=== PATIENT | male | born 1955 | race Caucasian/White ===

== ENCOUNTER → 2020-03-08 14:50 | Outpatient (BNVA) | payer MEDICARE, SELFPAY | PROVIDERS: PCP Internal Medicine; Visit Provider Urology | DX: N40.1 Benign prostatic hyperplasia with lower urinary tract symptoms (principal); N13.8 Other obstructive and reflux uropathy; R35.1 Nocturia; N52.9 Male erectile dysfunction, unspecified; Z79.899 Other long term (current) drug therapy | CPT/HCPCS: 99213 ==

== ENCOUNTER 2020-04-25 16:00 | Outpatient (RCR) | payer MEDICARE, SELFPAY | END 2020-04-30 10:31 | disposition other institution (70) | LOC: HO.PT 16:00 | PROVIDERS: PCP Internal Medicine; Visit Provider Internal Medicine | DX: M25.511 Pain in right shoulder (principal); M25.572 Pain in left ankle and joints of left foot | CPT/HCPCS: 97110; 97161 ==

== ENCOUNTER → 2021-02-01 10:35 | Outpatient (BNVA) | payer MEDICARE, SELFPAY | PROVIDERS: Visit Provider Urology | DX: N40.1 Benign prostatic hyperplasia with lower urinary tract symptoms (principal); N13.8 Other obstructive and reflux uropathy; N52.9 Male erectile dysfunction, unspecified; R97.20 Elevated prostate specific antigen [PSA] | CPT/HCPCS: 51798; 99212 ==

== ENCOUNTER 2021-04-11 08:41 | Outpatient (REF) | payer MEDICARE, SELFPAY ==
--- NOTE | ~2021-04-11 | CT_ITS ---
EXAMINATION: CT CHEST WITHOUT CONTRAST CLINICAL INFORMATION: Centrilobular emphysema COMPARISON: Previous chest CT most recent June 2017 TECHNIQUE: Multidetector volumetric CT imaging of the chest was done. Axial MIP volume rendering provided. Sagittal and coronal reformatted images were obtained. This CT examination was performed using dose optimization techniques as appropriate, variously including the following: *Automated exposure control *Adjustment of mA and/or kV according to patient size (this includes techniques or standardized protocols for targeted exams where dose is matched to indication/reason for exam; i.e. extremities or head) *Use of iterative reconstruction technique DLP: 160 mGy-cm FINDINGS: LUNGS: There is evidence of paraseptal and centrilobular emphysema. There is cystic or bullous changes seen at the right lung apex. Just inferior to this is an increasing solid parenchymal density. This measures 1.1 x 1.7 cm in transverse and longitudinal dimension coronal reconstructed image 52 and 1 cm in AP dimension sagittal reconstructed image 82. This has slightly spiculated margins. This has adjacent reactive fatty pleural changes. This gradually increasing in size compared to older exams from 2017 and 2018. The lungs are otherwise clear. MEDIASTINUM: There are small mediastinal lymph nodes. There is mild coronary artery calcification. Mediastinum is otherwise normal. PLEURA: There is no pleural effusion. No pleural mass. AXILLA: No lymphadenopathy. UPPER ABDOMEN: Unremarkable. OSSEOUS STRUCTURES: There are degenerative changes of the spine. CT/CT chest wo con IMPRESSION: Paraseptal and centrilobular emphysema. There is a cystic change at the right lung apex that is stable. Immediately inferior to this is an increasing irregularly-shaped or spiculated density or nodule. Neoplastic process cannot be excluded and either PET CT scan or imaging follow-up is recommended.
== END 2021-04-11 08:42 | disposition home or self-care (01) ==
LOC: HO.CT 08:41
PROVIDERS: PCP Internal Medicine; Visit Provider Internal Medicine
DX: J43.2 Centrilobular emphysema (principal)
CPT/HCPCS: 71250

== ENCOUNTER → 2021-04-22 09:23 | Outpatient (BNVA) | payer MEDICARE, SELFPAY | PROVIDERS: PCP Internal Medicine; Visit Provider Hospitalist | DX: R91.1 Solitary pulmonary nodule (principal); J44.9 Chronic obstructive pulmonary disease, unspecified; J18.9 Pneumonia, unspecified organism; G47.33 Obstructive sleep apnea (adult) (pediatric) | CPT/HCPCS: 99202 ==

== ENCOUNTER 2021-05-07 13:41 | Outpatient (REF) | payer MEDICARE, OTHER, SELFPAY ==
--- NOTE | ~2021-05-07 | PE_ITS ---
EXAMINATION: Fluorine-18 FDG PET/CT Scan CLINICAL INDICATION: Initial treatment management. Solitary pulmonary nodule. PROCEDURE: 66 minutes following the intravenous administration of 16.7 mCi of fluorine 18 FDG, images from the base of the skull to the mid thighs were obtained using a combined PET/CT scanner with CT scan based attenuation correction. No oral contrast was administered. No intravenous contrast was administered. Transverse, coronal, sagittal, and volume reconstruction projections were obtained. The patient's blood glucose as determined by a finger stick, was 81 mg/dl immediately prior to injection. Total CT exam dose-length product 645.32 mGy-cm * These CT images were obtained using dose optimization techniques as appropriate, variously including the following: Automated exposure control * Adjustment of mA and/or kV according to patient size (this includes techniques or standardized protocols for targeted exams where dose is matched to indication/reason for exam; i.e. extremities or head) * Use of iterative reconstruction technique COMPARISON: No previous PET/CT scan is available for comparison. CT scan of the chest dated 04/11/2021 is available for comparison. FINDINGS: (Slice numbers described in this report are numbered superiorly to inferiorly with slice #1 in the head) NECK AND VISUALIZED HEAD: No foci of abnormal FDG activity are noted. The distribution of FDG activity is physiological. There is no cervical lymphadenopathy. THORAX: There is a spiculated posterior pleural-based right apical pulmonary nodule that shows no abnormal FDG activity. This measures approximately 1.3 x 1.4 cm in largest transverse dimensions, slice 70/267 and approximately 2.0 cm cephalocaudad. This is unchanged from the recent 04/11/[address] scan, but on that study there was significant enlargement compared to a less recent 06/26/[address] scan. No additional pulmonary nodules are visualized on these nondiagnostic CT images. Also unchanged from 04/11/2021 is bilateral emphysema, most severe in the right lung apex where prominent medial pleural-based bullae are present. There is no pleural or pericardial fluid, or pneumothorax. There is no mediastinal, supraclavicular, or axillary lymphadenopathy. There is a 1.5 x 0.9 cm precarinal lymph node that shows FDG activity slightly less intense than the mediastinal blood pool showing SUVmax 4.4, slice 87/267 versus SUVmax 5.0 in the horizontal blood pool, slice 89/267. ABDOMEN AND PELVIS: No foci of abnormal FDG activity are present in the abdomen or pelvis. There is mild diffuse FDG activity throughout the the gastrointestinal tract, and this is most prominent in the proximal stomach which shows SUVmax 9.5, slice 126/267. There is diverticulosis without evidence of diverticulitis, the hollow viscera are otherwise unremarkable. The liver, gallbladder, spleen, kidneys, adrenal glands, and pancreas appear unremarkable. There is no retroperitoneal, mesenteric, pelvic or inguinal lymphadenopathy. The pelvic organs are unremarkable. Several metallic clips are present in the lower abdominal wall bilaterally likely from prior hernia surgery. MUSCULOSKELETAL: No foci of abnormal FDG activity are present in the osseous structures. There are degenerative changes in the spine but no suspicious sclerotic or lytic lesions are visualized. VASCULAR: Vascular calcifications including coronary are noted. PET/PET CT fusion skull to thigh IMPRESSION: 1. A spiculated enlarging posterior pleural-based right apical pulmonary nodule is noted but shows no abnormal FDG activity. The absence of abnormal FDG activity suggests a benign etiology. However because approximately 10% of pulmonary malignancies demonstrate no abnormal FDG activity as well as the enlarging and suspicious appearance of this nodule on the CT images, biopsy is recommended, if not clinically contraindicated. 2. No additional abnormalities suspicious for metastatic or other malignant lesions are noted. 3. Emphysema. 4. Vascular calcifications including coronary.
== END 2021-05-07 13:42 | disposition home or self-care (01) ==
LOC: HO.PET 13:41
PROVIDERS: PCP Internal Medicine; Visit Provider Hospitalist
DX: Z13.89 Encounter for screening for other disorder (principal)

== ENCOUNTER → 2021-05-14 15:42 | Outpatient (REF) | payer MEDICARE, OTHER, SELFPAY | LOC: HO.SL 15:42 | PROVIDERS: PCP Internal Medicine; Visit Provider Hospitalist | DX: G47.33 Obstructive sleep apnea (adult) (pediatric) (principal) | CPT/HCPCS: 95806 ==

== ENCOUNTER 2021-06-07 08:33 | Outpatient (REF) | payer MEDICARE, OTHER, SELFPAY ==
--- NOTE | 2021-06-07 17:27 | PFT_ITS ---
Forced vital capacity normal. FEV1 is slightly decreased. FEV1/FVC ratio is 68. HVY44-85 moderately decreased. Postbronchodilator therapy, there is no change. Total lung capacity and residual volume are slightly decreased. Diffusion capacity moderately decreased. CONCLUSION: These findings are consistent with moderately severe obstructive airway disorder. No response to bronchodilator therapy. Also, there is mild restrictive pulmonary disorder. Clinical correlation is recommended. MD HUNG Leslie/MOUSTAPHA / [phone]
== END 2021-06-07 08:34 | disposition home or self-care (01) ==
LOC: HO.RESP 08:33
PROVIDERS: PCP Internal Medicine; Visit Provider Hospitalist
DX: R91.1 Solitary pulmonary nodule (principal); J44.9 Chronic obstructive pulmonary disease, unspecified; N40.1 Benign prostatic hyperplasia with lower urinary tract symptoms; N13.8 Other obstructive and reflux uropathy
CPT/HCPCS: 51798; 94060; 94727; 94729; 99212

== ENCOUNTER 2021-06-19 11:53 | Day surgery (SDC) | payer MEDICARE, OTHER, SELFPAY ==
[2021-06-19] VITALS (9 sets, daily range): BP systolic 115–148; BP diastolic 65–81; PULSE 55–61; RESP 16–18; TEMP 36.1–36.6; O2SAT 97–98; BMI 24.3
--- NOTE | ~2021-06-19 | CT_ITS ---
PROCEDURE: CT GUIDED BIOPSY, LUNG CLINICAL INFORMATION: Right upper lobe lung lesion showing some mild increase in size of solid component compared to study of June 12, 2016. COMPARISON: April 11, 2021 and June 12, 2016 TECHNIQUE: CT fluoroscopic guided core biopsy right upper lobe pleural-based mass. This CT examination was performed using dose optimization techniques as appropriate, variously including the following: *Automated exposure control *Adjustment of mA and/or kV according to patient size (this includes techniques or standardized protocols for targeted exams where dose is matched to indication/reason for exam; i.e. extremities or head) *Use of iterative reconstruction technique DLP: 258 mGy-cm FINDINGS: Informed consent was obtained from the patient prior to the procedure. During this process, the procedure and potential alternatives were explained, along with the intended outcome and benefits. The risks of the procedure, as well as the risk of not doing the procedure, were discussed. The patient was given the opportunity to ask questions regarding the procedure and appeared competent to make medical decisions. A signed consent form which documents this discussion was placed in the medical record. Using sterile technique and CT fluoroscopic guidance a 17-gauge guiding needle was directed to the right upper lobe mass with patient lying prone. 2, 18-gauge core biopsies through the lesion were performed. Patient tolerated procedure without difficulty. No immediate postprocedure pneumothorax is evident. Patient has moderate changes of emphysema present. CT/CT biopsy lung RT IMPRESSION: CT fluoroscopic guided core biopsy right lung lesion.
--- NOTE | ~2021-06-19 | XR_ITS ---
EXAMINATION: XR CHEST CLINICAL INFORMATION: 2 delayed post right lung biopsy chest x-ray COMPARISON: June 19, 2021 and June 26, 2017 TECHNIQUE: AP portable view of the chest was obtained. FINDINGS: There appears be some minor atelectatic change in the left lower lobe. No pneumothorax or pleural effusion. Heart normal size. No evidence of pulmonary edema. Right apical pleural-parenchymal disease again seen. Severe degenerative change of the left shoulder. XR/XR chest 1V IMPRESSION: No delayed right pneumothorax.
--- NOTE | ~2021-06-19 | XR_ITS ---
EXAMINATION: XR CHEST CLINICAL INFORMATION: Immediate post right lung biopsy. COMPARISON: CT of May 07, 2021 and April 11, 2021 as well as chest and rib series of June 03, 2016 TECHNIQUE: AP portable view of the chest was obtained. FINDINGS: AP portable film of the chest demonstrate some density about the right upper lobe likely related to biopsy. No definite pneumothorax is seen with no right apical blebs again being evident and similar to study of June 03, 2016. Heart normal size. No evidence of pulmonary edema. No pleural effusion. Significant degenerative change of the left shoulder is evident. Old right rib fracture. XR/XR chest 1V IMPRESSION: No post right lung biopsy pneumothorax appreciated.
[2021-06-19 12:32] LABS: MANUAL DIFF FLAG NO
[2021-06-19 12:37] LABS: Basophils Absolute Auto 0.1 X10*3/uL (0.0-0.2); Basophils Percent Auto 0.9 % (0-2); Eosinophils Absolute Auto 0.1 X10*3/uL (0.0-0.4); Eosinophils Percent Auto 1.3 % (0-4); Hematocrit 45.2 % (42.0-52.0); Hemoglobin 15.2 g/dl (14.0-18.0); Imm Gran Abs Auto 0.01 X10*3/uL (0.00-0.03); Imm Gran Pct Auto 0.2 % (0.0-0.4); Lymphocytes Absolute Auto 1.6 X10*3/uL (1.2-4.9); Lymphocytes Percent Auto 29.2 % (20-40); Mean Corpuscular HGB Conc 33.6 g/dl (31.0-36.0); Mean Corpuscular Volume 95.2 fL (80.0-98.0); Mean Platelet Volume 10.4 fL (9.4-12.4); Monocytes Absolute Auto 0.4 X10*3/uL (0.1-1.2); Monocytes Percent Auto 7.5 % (2-11); Neutrophils Absolute Auto 3.3 x10*3/uL (2.0-8.3); Neutrophils Percent Auto 60.9 % (45-73); Platelet Count 191 X10*3/uL (160-400); Red Blood Count 4.75 X10*6/uL (4.60-5.80); Red Cell Distribution Width 12.5 % (11.0-16.0); White Blood Count 5.4 X10*3/uL (4.8-10.8)
[2021-06-19 12:46] LABS: INTERNATIONAL NORM RATIO 1.2 (0.9-1.1); Prothrombin Time 13.3 SEC (9.9-13.0)
== END 2021-06-19 17:59 | disposition home or self-care (01) ==
PROVIDERS: PCP Internal Medicine; Visit Provider Radiology Diagnostic Radiology
DX: R91.1 Solitary pulmonary nodule (principal); J44.9 Chronic obstructive pulmonary disease, unspecified; J18.9 Pneumonia, unspecified organism; R06.83 Snoring; Z88.0 Allergy status to penicillin; G47.33 Obstructive sleep apnea (adult) (pediatric)
CPT/HCPCS: 32408; 36415; 71045; 85025; 85610; 85730; 88305; 88333; 99152; 99153; J2250; J3010

== ENCOUNTER → 2021-07-05 10:01 | Outpatient (BNVA) | payer MEDICARE, OTHER, SELFPAY | PROVIDERS: PCP Internal Medicine; Visit Provider Hospitalist | DX: R91.1 Solitary pulmonary nodule (principal); J18.9 Pneumonia, unspecified organism; J44.9 Chronic obstructive pulmonary disease, unspecified; G47.33 Obstructive sleep apnea (adult) (pediatric) | CPT/HCPCS: 99212 ==

== ENCOUNTER 2021-07-11 08:22 | Outpatient (REF) | payer MEDICARE, OTHER, SELFPAY ==
[2021-07-11 10:02] LABS: MANUAL DIFF FLAG NO
[2021-07-11 10:14] LABS: Basophils Percent Auto 0.6 % (0-2); Eosinophils Absolute Auto 0.1 X10*3/uL (0.0-0.4); Eosinophils Percent Auto 1.3 % (0-4); Hematocrit 43.7 % (42.0-52.0); Hemoglobin 14.6 g/dl (14.0-18.0); Imm Gran Abs Auto 0.01 X10*3/uL (0.00-0.03); Imm Gran Pct Auto 0.1 % (0.0-0.4); Lymphocytes Absolute Auto 1.4 X10*3/uL (1.2-4.9); Lymphocytes Percent Auto 20.5 % (20-40); Mean Corpuscular HGB Conc 33.4 g/dl (31.0-36.0); Mean Corpuscular Hemoglobin 31.5 pg (27.0-33.0); Mean Corpuscular Volume 94.4 fL (80.0-98.0); Mean Platelet Volume 10.3 fL (9.4-12.4); Monocytes Absolute Auto 0.5 X10*3/uL (0.1-1.2); Monocytes Percent Auto 6.6 % (2-11); Neutrophils Absolute Auto 4.9 x10*3/uL (2.0-8.3); Neutrophils Percent Auto 70.9 % (45-73); Platelet Count 193 X10*3/uL (160-400); Red Blood Count 4.63 X10*6/uL (4.60-5.80); White Blood Count 6.9 X10*3/uL (4.8-10.8)
[2021-07-11 10:50] LABS: Erythrocyte Sedimentation Rate 4 MM/HR (0-15)
[2021-07-11 10:56] LABS: Alanine Aminotransferase 15 U/L (0-40); Albumin Level 4.2 g/dL (3.5-5.0); Alkaline Phosphatase 73 U/L (39-117); Anion Gap 7 (12-20); Aspartate Amino Transferase 25 U/L (5-37); Bilirubin Total 0.6 mg/dL (0.0-1.0); Blood Urea Nitrogen 19 mg/dL (9-16); Calcium 9.6 mg/dL (8.4-10.2); Carbon Dioxide 32 mmol/L (22-29); Chloride 106 mmol/L (96-108); Estimated Glomerular Filt Rate > 60; Glucose Random 83 mg/dL (60-115); Potassium 4.4 mmol/L (3.3-5.1); Sodium 141 mmol/L (135-145); Total Protein 7.3 g/dL (6.5-8.0)
[2021-07-11 11:04] LABS: PSA,Total (Free>4and<10) 3.01 ng/mL (0.00-4.00)
[2021-07-15 18:32] LABS: Immunoglobulin E 54 kU/L (<OR=114)
[2021-07-16 09:42] LABS: Anti Nuclear Antibody Screen POSITIVE (NEGATIVE)
[2021-07-17 21:21] LABS: Asperg fumigatus Precip Abs NEGATIVE (NEGATIVE); Micropoly faeni Abs NEGATIVE (NEGATIVE); Pigeon serum Abs NEGATIVE (NEGATIVE); Saccharo pora viridis Abs NEGATIVE (NEGATIVE); Thermo candidus Abs NEGATIVE (NEGATIVE); Thermoa vulgaris #1 NEGATIVE (NEGATIVE)
== END 2021-07-11 08:23 | disposition home or self-care (01) ==
LOC: HO.LAB 08:22
PROVIDERS: Hospitalist; Absent Provider Urology; PCP Internal Medicine; Visit Provider Nurse Practitioner
DX: Z12.5 Encounter for screening for malignant neoplasm of prostate (principal); N13.8 Other obstructive and reflux uropathy; N40.1 Benign prostatic hyperplasia with lower urinary tract symptoms; D12.6 Benign neoplasm of colon, unspecified; R19.5 Other fecal abnormalities; J18.9 Pneumonia, unspecified organism; R91.1 Solitary pulmonary nodule; R91.8 Other nonspecific abnormal finding of lung field; J44.9 Chronic obstructive pulmonary disease, unspecified; G47.33 Obstructive sleep apnea (adult) (pediatric)
CPT/HCPCS: 36415; 80053; 82785; 84153; 85025; 85652; 86038; 86039; 86331; 86606; 86609; 99202

== ENCOUNTER → 2021-07-30 14:49 | Outpatient (BNVA) | payer MEDICARE, OTHER, SELFPAY | PROVIDERS: PCP Internal Medicine; Visit Provider Urology | DX: N40.1 Benign prostatic hyperplasia with lower urinary tract symptoms (principal); N13.8 Other obstructive and reflux uropathy; N52.9 Male erectile dysfunction, unspecified; R97.20 Elevated prostate specific antigen [PSA] | CPT/HCPCS: 52000; 99212 ==

== ENCOUNTER 2021-09-09 08:34 | Day surgery (SDC) | payer MEDICARE, OTHER, SELFPAY ==
[2021-09-03 12:56] VITALS: BMI 24.3
--- NOTE | 2021-09-06 12:42 | P.CONAN_ITS ---
Documented by User: Mouna Gillette NP 09/06/21 12:43 HPI - Anesthesia Eval Consult details Narrative: 66yo M for?Laser Ablation Prostate w/Green Light PMFSH Active Problems Active Problems: All Active Problems (Updated 09/03/21 @ 12:56 by Megan Talavera RN) BPH with obstruction/lower urinary tract symptoms (Acute) Elevated PSA (Acute) Erectile dysfunction (Acute) Positive colorectal cancer screening using Cologuard test (Acute) Tubular adenoma of colon (Acute) Chronic hepatitis C (Acute) High cholesterol (Acute) Impaired fasting glucose (Acute) Alopecia (Acute) MINGO (obstructive sleep apnea) (Acute) COPD (chronic obstructive pulmonary disease) (Acute) Pneumonitis (Acute) Pulmonary nodule (Acute) Past Medical History Medical History (Updated 09/03/21 @ 12:56 by Megan Talavera RN) BPH (benign prostatic hyperplasia) COPD (chronic obstructive pulmonary disease) Elevated cholesterol Hepatitis C MINGO (obstructive sleep apnea) Pneumonitis Pulmonary nodule Surgical History Surgical History (Updated 09/03/21 @ 12:43 by Megan Talavera RN) H/O colonoscopy History of esophagogastroduodenoscopy (EGD) History of lung biopsy Hx of bilateral inguinal hernia repair Hx of circumcision Hx of right inguinal hernia repair Social History Social History Patient Tobacco Use Status: Never used Tobacco Use of substances other than those prescribed or required for medical reasons: Yes Substance Use Type: Marijuana Substance Use Type Other:: advised to hold pre-op Have you been hit, kicked, punched, or otherwise hurt by someone within the past year? If so, by whom?: No Are you DNR?: No Advance Directives: No Advance Directives Information Provided: Yes (brochure mailed) Advance Directives on File: No Recently lost weight without trying: No Eating poorly because of decreased appetite: No Nutrition Risks: No Nutritional Risk Meds Allergies Allergy/AdvReac Type Severity Reaction Status Date / Time Penicillins Allergy Intermediate SWELLING Verified 07/30/21 14:56 Home Medications Medication Instructions Recorded Confirmed Last Taken Type fluticasone propionate 50 2 spray INTRANASAL DAILY 04/22/21 09/03/21 Unknown History mcg/actuation nasal spray,suspension wxnfoiaa-spq-ldjwu acid 300 1 tab PO DAILY 04/22/21 09/03/21 Unknown History mcg-lycopene 600 mcg-lutein 300 mcg tablet (Centrum Silver Ultra Men's) omega-3 fatty acids 1,000 mg 1,000 mg PO DAILY 04/22/21 09/03/21 Unknown History capsule (Fish Oil Concentrate) timolol maleate 0.5 % eye drops 1 drp OPHTHALMIC (EYE) BID 04/22/21 09/03/21 Unknown History finasteride 5 mg tablet 5 mg PO BEDTIME 09/03/21 09/03/21 Unknown History tamsulosin 0.4 mg capsule 0.8 mg PO QAM 09/03/21 09/03/21 09/09/21 History Exam Exam Date and Time: September 06, 2021 1242 Height,Weight and Vital Signs: Height 5 ft 7 in Weight 70.307 kg Pertinent Lab Results Pertinent Lab Results: Laboratory Tests 07/11/21 07/11/21 10:00 10:00 WBC 6.9 Hgb 14.6 Hct 43.7 Plt Count 193 Sodium 141 Potassium 4.4 Chloride 106 Carbon Dioxide 32 H BUN 19 H Creatinine 0.90 Narrative Narrative: PFT 06/2021 CONCLUSION:? These findings are consistent with moderately severe obstructive airway disorder. ? No response to bronchodilator therapy. ? Also, there is mild restrictive pulmonary disorder. ? Clinical correlation is recommended. Assessment and Plan Assessment Anesthesia Assessment: Chart Reviewed Documented by User: Derek Chan MD 09/09/21 09:17 [facility] Past Medical History Medical History (Updated 09/03/21 @ 12:56 by Megan Talavera RN) BPH (benign prostatic hyperplasia) COPD (chronic obstructive pulmonary disease) Elevated cholesterol Hepatitis C MINGO (obstructive sleep apnea) Pneumonitis Pulmonary nodule Family History Family history of problems with anesthesia: No Surgical History Surgical History (Updated 09/03/21 @ 12:43 by Megan Talavera RN) H/O colonoscopy History of esophagogastroduodenoscopy (EGD) History of lung biopsy Hx of bilateral inguinal hernia repair Hx of circumcision Hx of right inguinal hernia repair History of Problems with Anesthesia: No Social History Social History Patient Tobacco Use Status: Never used Tobacco Use of substances other than those prescribed or required for medical reasons: Yes Substance Use Type: Marijuana Substance Use Type Other:: advised to hold pre-op Have you been hit, kicked, punched, or otherwise hurt by someone within the past year? If so, by whom?: No Are you DNR?: No Advance Directives: No Advance Directives Information Provided: Yes (brochure mailed) Advance Directives on File: No Recently lost weight without trying: No Eating poorly because of decreased appetite: No Nutrition Risks: No Nutritional Risk Meds Allergies Allergy/AdvReac Type Severity Reaction Status Date / Time Penicillins Allergy Intermediate SWELLING Verified 07/30/21 14:56 Home Medications Medication Instructions Recorded Confirmed Last Taken Type fluticasone propionate 50 2 spray INTRANASAL DAILY 04/22/21 09/03/21 Unknown History mcg/actuation nasal spray,suspension cxwfndya-zkp-dfwyi acid 300 1 tab PO DAILY 04/22/21 09/03/21 Unknown History mcg-lycopene 600 mcg-lutein 300 mcg tablet (Centrum Silver Ultra Men's) omega-3 fatty acids 1,000 mg 1,000 mg PO DAILY 04/22/21 09/03/21 Unknown History capsule (Fish Oil Concentrate) timolol maleate 0.5 % eye drops 1 drp OPHTHALMIC (EYE) BID 04/22/21 09/03/21 Unknown History finasteride 5 mg tablet 5 mg PO BEDTIME 09/03/21 09/03/21 Unknown History tamsulosin 0.4 mg capsule 0.8 mg PO QAM 09/03/21 09/03/21 09/09/21 History Exam Airway Mallampati Class: II TM Dist: >3cm Neck ROM: Full Assessment and Plan Final Anesthetic Review Family History of Problems with Anesthesia: No History of Problems with Anesthesia: No NPO: Yes ASA Class: III Final Preanesthetic Review: No Changes in Pt Med Stat, Meds/Allgs Chart Reviewed, Consent Obtained/Reviewed and Anes Risks/Benef Reviewed Patient Risk: Intermediate Procedure Risk: Low Anesthetic Plan Anesthetic Plan: GA Disposition: Standard PACU
[2021-09-09] VITALS (7 sets, daily range): BP systolic 135–150; BP diastolic 71–86; PULSE 53–62; RESP 16; TEMP 36.1–36.2; O2SAT 96–100
[2021-09-09] MEDS: Lactated Ringers 1,000 ML 100 ML IVCONT (09:13)
[2021-09-09] MEDS: Acetaminophen 325 MG TABLET 650 MG PO (09:15)
--- NOTE | 2021-09-09 10:04 | MHC.SHP ---
Pre-Procedural Eval Section A Date of Service: 09/09/21 The patient is an INPATIENT: No Changes since office visit: No Cold of Flu in the past 2 weeks, No New Medical Problems, No Changes in Medication and No Patient answered all questions The History & Physical has been completed within 30 days and I have reviewed it.: No Section B Chief Complaint: BPH Details of Present Illness: failed medical therapy Relevant Family History (Specify if Yes): No Relevant Social History: None Present Medications: see Short Stay Collaborative assessment Medical History: No relevant PMH History of Previous Operations: No relevant previous surgery Allergies: Allergies Allergy/AdvReac Type Severity Reaction Status Date / Time Penicillins Allergy Intermediate SWELLING Verified 07/30/21 14:56 Review of Systems Sugical H&P ROS: Negative: Constitution, Cardiovascular, Respiratory, Neurological, Psychiatric, Hem-Onc, Allergic/Immunologic, Gastrointestinal, Genitourinary, Musculoskeletal, Integumentary, Endocrine and Eyes/Ears/Nose/Throat Exam Surgical H&P Exam: Normal: HEENT, Normal: Heart, Normal: Lungs, Normal: Extremities, Normal: Abdomen, Normal: Skin and Normal: Neurological Plan Diagnosis/Plan: Unchanged ( GreenLight laser enucleation of prostate) I have reviewed the history and physical and performed a pertinent physical examination on my patient. No changes have occurred unless specified.
--- NOTE | 2021-09-09 13:08 | W.PM.OPN ---
Operative Note Operative Note Date of Service: 09/09/21 Narrative: PreOperative Diagnosis: Bladder outlet obstruction Post Operative Diagnosis: Bladder outlet obstruction Procedure: GreenLight Laser Enucleation of the prostate Surgeon: Dr Anthony Lorenz Anesthesia: General Indications for procedure: bilobar impingement History of bladder outlet obstruction. Treated with alpha-alexis and other medications. Still with symptoms. On cystoscopy in office has bilobar impingement. Recommendation for prostate procedure with laser enucleation of prostate. It has been discussed. Focus was placed on development of retrograde examination which is a normal part of this procedure. Procedure: After informed consent was verified the patient was brought to the operating room and placed in a supine position. Anesthesia was administered per protocol. Patient was placed in modified dorsal lithotomy position and prepped and draped in a sterile fashion. Safety pause time-out was confirmed. Antibiotics have been given. Twenty-four English laser cystoscope was inserted per urethra. No abnormalities found the anterior posterior urethra. The bladder was filled on both ureteric orifices were seen in normal position away from our area of interest. Once the median lobe area had been cleaned attention was directed to the lateral lobes. We started with the patient's left lateral lobe. Firstly the 05:00 o'clock groove was further developed. This was moved in the lateral position to undermine the tissue on the lateral side. Focus was then placed on the laser at the 1 o'clock position in developing a secondary groove down to the level of bladder fibers. The intervening tissue between these 2 grooves was removed with a combination of enucleation ablation working from the apex toward the bladder neck. A similar procedure was repeated on the patient's right-hand side. When this was completed debris and pieces of prostate removed from the bladder. Both ureteric orifices were reviewed again in shown to be patent in away from any areas of energy damage. The apical area was reviewed in any stray ooze was controlled. A 22 English 30 cc balloon Flores catheter was placed over stylet into the bladder. Clear efflux was obtained. 30 cc was placed in the balloon and gentle traction was placed. A snap was used to hold tension once the patient will be moved and transported. Once transportation its finish this novel be removed. A belladonna and opiate suppository was placed for postprocedure pain management. He tolerated procedure well was extubated in the operating and transferred in a stable condition to the recovery area. Total Power 150,000 kJ and 23 min lasing time Pathology: Prostate tissue Drains: Flores catheter
== END 2021-09-09 16:06 | disposition home or self-care (01) ==
PROVIDERS: PCP Internal Medicine; Visit Provider Urology
PROC: (CPT 52648; principal; 2021-09-09 10:20)
DX: N40.1 Benign prostatic hyperplasia with lower urinary tract symptoms (principal); N13.8 Other obstructive and reflux uropathy; R35.1 Nocturia; R97.20 Elevated prostate specific antigen [PSA]; J44.9 Chronic obstructive pulmonary disease, unspecified; G47.33 Obstructive sleep apnea (adult) (pediatric); Z79.899 Other long term (current) drug therapy; Z88.0 Allergy status to penicillin
CPT/HCPCS: 52649; 88305; J1956; J2250; J3010

== ENCOUNTER → 2021-09-12 09:49 | Outpatient (BNVA) | payer MEDICARE, OTHER, SELFPAY | PROVIDERS: PCP Internal Medicine; Visit Provider Urology | DX: N40.1 Benign prostatic hyperplasia with lower urinary tract symptoms (principal); N13.8 Other obstructive and reflux uropathy | CPT/HCPCS: 51700; 51798 ==

== ENCOUNTER → 2021-10-31 09:17 | Outpatient (BNVA) | payer MEDICARE, OTHER, SELFPAY | PROVIDERS: PCP Internal Medicine; Visit Provider Urology | DX: Z48.89 Encounter for other specified surgical aftercare (principal); N40.1 Benign prostatic hyperplasia with lower urinary tract symptoms; N13.8 Other obstructive and reflux uropathy; N52.9 Male erectile dysfunction, unspecified; R97.20 Elevated prostate specific antigen [PSA] | CPT/HCPCS: 51798; 99212 ==

== ENCOUNTER 2021-11-11 09:57 | Day surgery (SDC) | payer MEDICARE, OTHER, SELFPAY ==
--- NOTE | 2021-11-08 09:03 | P.CONAN_ITS ---
Documented by User: Mouna Gillette NP 11/08/21 09:04 HPI - Anesthesia Eval Consult details Narrative: 66yo M for Colonoscopy s/p laser of prostate 08/2021 with GA-LMA 4 PMFSH Active Problems Active Problems: All Active Problems (Updated 09/03/21 @ 12:56 by Megan Talavera, RAJESH) BPH with obstruction/lower urinary tract symptoms (Acute) Elevated PSA (Acute) Erectile dysfunction (Acute) Positive colorectal cancer screening using Cologuard test (Acute) Tubular adenoma of colon (Acute) Chronic hepatitis C (Acute) High cholesterol (Acute) Impaired fasting glucose (Acute) Alopecia (Acute) MINGO (obstructive sleep apnea) (Acute) COPD (chronic obstructive pulmonary disease) (Acute) Pneumonitis (Acute) Pulmonary nodule (Acute) Past Medical History Medical History BPH (benign prostatic hyperplasia) COPD (chronic obstructive pulmonary disease) Elevated cholesterol Hepatitis C MINGO (obstructive sleep apnea) Pneumonitis Pulmonary nodule Family History Family history of problems with anesthesia: No Surgical History Surgical History (Updated 11/05/21 @ 13:51 by Julia Claudio, RAJESH) H/O colonoscopy History of esophagogastroduodenoscopy (EGD) History of lung biopsy History of prostate surgery Hx of bilateral inguinal hernia repair Hx of circumcision Hx of right inguinal hernia repair History of Problems with Anesthesia: No Social History Social History Patient Tobacco Use Status: Never used Tobacco Substance Use Type: Marijuana Advance Directives: No Advance Directives Information Provided: Yes Meds Allergies Allergy/AdvReac Type Severity Reaction Status Date / Time Penicillins Allergy Intermediate SWELLING Verified 10/31/21 09:27 Home Medications Medication Instructions Recorded Confirmed Last Taken Type fluticasone propionate 50 2 spray intranasal DAILY 04/22/21 11/05/21 Unknown History mcg/actuation nasal spray,suspension lyfmtitm-gui-zpswh acid 300 1 tab PO DAILY 04/22/21 11/05/21 Unknown History mcg-lycopene 600 mcg-lutein 300 mcg tablet (Centrum Silver Ultra Men's) omega-3 fatty acids 1,000 mg 1,000 mg PO DAILY 04/22/21 11/05/21 Unknown History capsule (Fish Oil Concentrate) timolol maleate 0.5 % eye drops 1 drp ophthalmic (eye) BID 04/22/21 11/05/21 Unknown History finasteride 5 mg tablet 5 mg PO BEDTIME 09/03/21 11/05/21 Unknown History Exam Exam Date and Time: November 08, 2021 0903 Height,Weight and Vital Signs: Height 5 ft 7 in Weight 70.307 kg Pertinent Lab Results Pertinent Lab Results: Laboratory Tests 07/11/21 07/11/21 10:00 10:00 WBC 6.9 Hgb 14.6 Hct 43.7 Plt Count 193 Sodium 141 Potassium 4.4 Chloride 106 Carbon Dioxide 32 H BUN 19 H Creatinine 0.90 Narrative Narrative: PFT 06/2021 CONCLUSION:? These findings are consistent with moderately severe obstructive airway disorder. ? No response to bronchodilator therapy. ? Also, there is mild restrictive pulmonary disorder. ? Clinical correlation is recommended. Assessment and Plan Assessment Anesthesia Assessment: Chart Reviewed Final Anesthetic Review Family History of Problems with Anesthesia: No History of Problems with Anesthesia: No Documented by User: Anais Russell MD 11/11/21 10:14 [facility] Past Medical History Medical History BPH (benign prostatic hyperplasia) COPD (chronic obstructive pulmonary disease) Elevated cholesterol Hepatitis C MINGO (obstructive sleep apnea) Pneumonitis Pulmonary nodule Surgical History Surgical History (Updated 11/05/21 @ 13:51 by Julia Claudio, RN) H/O colonoscopy History of esophagogastroduodenoscopy (EGD) History of lung biopsy History of prostate surgery Hx of bilateral inguinal hernia repair Hx of circumcision Hx of right inguinal hernia repair Social History Social History Patient Tobacco Use Status: Never used Tobacco Substance Use Type: Marijuana Advance Directives: No Advance Directives Information Provided: Yes Meds Allergies Allergy/AdvReac Type Severity Reaction Status Date / Time Penicillins Allergy Intermediate SWELLING Verified 10/31/21 09:27 Home Medications Medication Instructions Recorded Confirmed Last Taken Type fluticasone propionate 50 2 spray intranasal DAILY 04/22/21 11/05/21 Unknown History mcg/actuation nasal spray,suspension bzhdxeev-rvs-udwuf acid 300 1 tab PO DAILY 04/22/21 11/05/21 Unknown History mcg-lycopene 600 mcg-lutein 300 mcg tablet (Centrum Silver Ultra Men's) omega-3 fatty acids 1,000 mg 1,000 mg PO DAILY 04/22/21 11/05/21 Unknown History capsule (Fish Oil Concentrate) timolol maleate 0.5 % eye drops 1 drp ophthalmic (eye) BID 04/22/21 11/05/21 Unknown History finasteride 5 mg tablet 5 mg PO BEDTIME 09/03/21 11/05/21 Unknown History Exam Airway Mallampati Class: II TM Dist: >3cm Neck ROM: Full Heart: rrr Lungs: cta Assessment and Plan Assessment Anesthesia Assessment: Anesthesia Plan Discussed and Chart Reviewed Final Anesthetic Review NPO: Yes ASA Class: II Final Preanesthetic Review: No Changes in Pt Med Stat and Meds/Allgs Chart Re viewed Patient Risk: Intermediate Procedure Risk: Intermediate Anesthetic Plan Anesthetic Plan: MAC: Disposition: Standard PACU
[2021-11-11 10:27] VITALS: BP 152/81; PULSE 63; RESP 16; TEMP 36.2; O2SAT 98; BMI 23.5
--- NOTE | 2021-11-11 10:43 | HO.ANESPROP2 ---
HPI - Anesthesia Eval Consult details Narrative: colonoscopy [facility] Active Problems Active Problems: All Active Problems (Updated 09/03/21 @ 12:56 by Megan Talavera, RN) BPH with obstruction/lower urinary tract symptoms (Acute) Elevated PSA (Acute) Erectile dysfunction (Acute) Positive colorectal cancer screening using Cologuard test (Acute) Tubular adenoma of colon (Acute) Chronic hepatitis C (Acute) High cholesterol (Acute) Impaired fasting glucose (Acute) Alopecia (Acute) MINGO (obstructive sleep apnea) (Acute) COPD (chronic obstructive pulmonary disease) (Acute) Pneumonitis (Acute) Pulmonary nodule (Acute) Past Medical History Medical History BPH (benign prostatic hyperplasia) COPD (chronic obstructive pulmonary disease) Elevated cholesterol Hepatitis C MINGO (obstructive sleep apnea) Pneumonitis Pulmonary nodule Family History Family history of problems with anesthesia: No Surgical History Surgical History (Updated 11/05/21 @ 13:51 by Julia Claudio RN) H/O colonoscopy History of esophagogastroduodenoscopy (EGD) History of lung biopsy History of prostate surgery Hx of bilateral inguinal hernia repair Hx of circumcision Hx of right inguinal hernia repair History of Problems with Anesthesia: No Social History Social History Patient Tobacco Use Status: Never used Tobacco Use of substances other than those prescribed or required for medical reasons: Yes Substance Use Type: Marijuana Are you DNR?: No Advance Directives: No Advance Directives Information Provided: Yes Meds Allergies Allergy/AdvReac Type Severity Reaction Status Date / Time Penicillins Allergy Intermediate SWELLING Verified 10/31/21 09:27 Active Medications: Current Medications Albuterol Sulfate (Albuterol Sulfate (0.083%) 2.5 Mg/3 Ml Vial.Neb) 2.5 mg INHALE ONCE PRN PRN Reason: Shortness of Breath/Wheezing Lactated Ringer's (Lr) 1,000 mls @ 100 mls/hr IVCONT .Q10H [facility] Home Medications Medication Instructions Recorded Confirmed Last Taken Type fluticasone propionate 50 2 spray intranasal DAILY 04/22/21 11/05/21 Unknown History mcg/actuation nasal spray,suspension aoyxdhua-iis-evsfq acid 300 1 tab PO DAILY 04/22/21 11/05/21 Unknown History mcg-lycopene 600 mcg-lutein 300 mcg tablet (Centrum Silver Ultra Men's) omega-3 fatty acids 1,000 mg 1,000 mg PO DAILY 04/22/21 11/05/21 Unknown History capsule (Fish Oil Concentrate) timolol maleate 0.5 % eye drops 1 drp ophthalmic (eye) BID 04/22/21 11/05/21 Unknown History finasteride 5 mg tablet 5 mg PO BEDTIME 09/03/21 11/05/21 Unknown History Exam Exam Date and Time: November 11, 2021 1043 Height,Weight and Vital Signs: Height 5 ft 7 in Weight 68.039 kg Last Vital Signs Temp 97.2 F 11/11/21 10:27 Pulse 63 11/11/21 10:27 Resp 16 11/11/21 10:27 BP 152/81 H 11/11/21 10:27 Pulse Ox 98 11/11/21 10:27 O2 Del Method 11/11/21 10:27 Assessment and Plan Final Anesthetic Review Family History of Problems with Anesthesia: No History of Problems with Anesthesia: No
[2021-11-11] MEDS: Lactated Ringers 1,000 ML 100 ML IVCONT (10:44)
--- NOTE | 2021-11-11 10:57 | MHC.SHP ---
Pre-Procedural Eval Section A Date of Service: 11/11/21 The patient is an INPATIENT: No The History & Physical has been completed within 30 days and I have reviewed it.: No Section B Chief Complaint: Other fecal abnormalities Relevant Family History (Specify if Yes): No Relevant Social History: None Present Medications: see Short Stay Collaborative assessment Medical History: Significant History (COPD (chronic obstructive pulmonary disease) Male circumcision MINGO (obstructive sleep apnea) Pneumonitis Pulmonary nodule) History of Previous Operations: Relevant previous surgery/procedure and date(s) (History of hernia repair, history of colonoscopy, history of EGD history of prostate cancer) Allergies: Allergies Allergy/AdvReac Type Severity Reaction Status Date / Time Penicillins Allergy Intermediate SWELLING Verified 10/31/21 09:27 Review of Systems Sugical H&P ROS: Negative: Constitution, Cardiovascular, Respiratory and Gastrointestinal Exam Surgical H&P Exam: Normal: Heart, Normal: Lungs, Normal: Extremities and Normal: Abdomen Plan Diagnosis/Plan: Unchanged I have reviewed the history and physical and performed a pertinent physical examination on my patient. No changes have occurred unless specified.
--- NOTE | 2021-11-11 11:04 | P.OP_ITS ---
Operative Note Operative Note Date of Service: 11/11/21 Narrative: Pre-op diagnosis: Colon cancer screening, history of colon polyps, positive Cologuard test Post-op diagnosis:?other (Colon polyps, diverticulosis) Procedure: COLONOSCOPY TILL CECUM WITH BIOPSIES AND SNARE POLYPECTOMY Consent: Indications for the procedure and potential complications of bleeding, perforation, reaction to medications and missed diagnosis were discussed with the patient and informed consent was obtained. Instrument: Olympus PCF H 190 L variable stiffness pediatric colonoscope Monitoring: Vital signs and clinical assessment, intermittent blood pressure monitoring, continuous EKG monitoring, Pulse oximetry and Carbon Dioxide monitoring were done throughout the procedure. Colon withdrawl time was 15 minutes. Procedure: The patient was placed in the left lateral decubitis position and pre-procedure medications were administered. After a digital rectal examination of the ano-rectum, the video colonoscope was inserted into the rectum and advanced through the colon to the cecum. The colonoscope was slowly withdrawn in a retrograde panoramic fashion and the colon mucosa was carefully examined including a retroflexed view of the rectum. Findings and interventions are described below. Procedure Difficulty: Without difficulty Findings: Terminal Ileum: Not evaluated Cecum:? Two 5 to 8 mm sessile polyps removed with a cold bx Ascending Colon:? Normal Transverse Colon:? A 15 mm sessile polyp removed with a hot snare. A 5-6 mm sessile polyp removed with a cold bx. Descending Colon:? Moderate diverticulosis Sigmoid Colon:? Severe diverticulosis with luminal narrowing Rectum:? Normal Ano-rectum:? Normal Colon preparation:? Good? Impression and Post Procedure Diagnosis: Colonoscopy Findings: Four small to medium sized polyps removed Moderate to severe diverticulosis seen in the left colon Plan: Await pathology results Patient has an appointment on 11/25/21 in the GI Clinic with? Mitzi Aguilar NP. Repeat Colonoscopy interval based on path results - in 3-5 years if polyps are adenomatous and due to a hx of colon polyps. Above findings were reviewed with the patient and colon polyps and diverticulosis handouts were given in the discharge area Surgeon: Cheyanne Riley MD Anesthesia:?MAC (Dr Ruelas) Was an Air Technician used for this Procedure?:?Yes Air Technician:?Guerline Watson Estimated blood loss (mL):?0 Pathology:?other (A. transverse colon polyps (2)? B. cecal polyps (2)) Condition:?stable Disposition:?PACU
[2021-11-11 11:43] VITALS: BP 110/70; PULSE 64; RESP 16; TEMP 36.4; O2SAT 96
[2021-11-11 11:58] VITALS: BP 133/76; PULSE 63; RESP 16; O2SAT 98
== END 2021-11-11 12:45 | disposition home or self-care (01) ==
PROVIDERS: PCP Internal Medicine; Visit Provider Internal Medicine Gastroenterology
PROC: 0DJD8ZZ Inspection of Lower Intestinal Tract, Via Natural or Artificial Opening Endoscopic (ICD-10-PCS; CPT 45378; principal; 2021-11-11 12:40)
DX: R19.5 Other fecal abnormalities (principal); Z86.010 Personal history of colon polyps; D12.0 Benign neoplasm of cecum; D12.3 Benign neoplasm of transverse colon; K57.30 Diverticulosis of large intestine without perforation or abscess without bleeding; G47.33 Obstructive sleep apnea (adult) (pediatric); J44.9 Chronic obstructive pulmonary disease, unspecified; E78.00 Pure hypercholesterolemia, unspecified; R73.01 Impaired fasting glucose; Z86.19 Personal history of other infectious and parasitic diseases; Z79.51 Long term (current) use of inhaled steroids; Z79.899 Other long term (current) drug therapy; Z88.0 Allergy status to penicillin
CPT/HCPCS: 45385; 45380; 88305

== ENCOUNTER → 2021-11-25 13:20 | Outpatient (BNVA) | payer MEDICARE, OTHER, SELFPAY | PROVIDERS: PCP Internal Medicine; Referring Provider Internal Medicine; Visit Provider Nurse Practitioner | DX: D12.3 Benign neoplasm of transverse colon (principal); D12.0 Benign neoplasm of cecum; K57.30 Diverticulosis of large intestine without perforation or abscess without bleeding; Z98.890 Other specified postprocedural states | CPT/HCPCS: 99212 ==

== ENCOUNTER 2022-01-23 09:57 | Outpatient (REF) | payer MEDICARE, SELFPAY ==
[2022-01-23 11:35] LABS: Prostate Specific Antigen 2.09 ng/mL (<0.05-4.0)
== END 2022-01-23 09:58 | disposition home or self-care (01) ==
LOC: HO.LAB 09:57
PROVIDERS: PCP Internal Medicine; Visit Provider Urology
DX: Z12.5 Encounter for screening for malignant neoplasm of prostate (principal); N40.1 Benign prostatic hyperplasia with lower urinary tract symptoms; N13.8 Other obstructive and reflux uropathy
CPT/HCPCS: 36415; 84153

== ENCOUNTER → 2022-01-30 08:36 | Outpatient (BNVA) | payer MEDICARE, SELFPAY | PROVIDERS: PCP Internal Medicine; Visit Provider Urology | DX: R97.20 Elevated prostate specific antigen [PSA] (principal); N40.1 Benign prostatic hyperplasia with lower urinary tract symptoms; N13.8 Other obstructive and reflux uropathy; N52.9 Male erectile dysfunction, unspecified | CPT/HCPCS: Q3014 ==

== ENCOUNTER 2022-05-23 16:25 | Outpatient (REF) | payer MEDICARE, SELFPAY ==
--- NOTE | ~2022-05-23 | CT_ITS ---
EXAMINATION: CT CHEST WITHOUT CONTRAST CLINICAL INFORMATION: Follow-up pulmonary nodule COMPARISON: Previous chest CT April 2021 and chest x-ray June 2021 TECHNIQUE: Multidetector volumetric CT imaging of the chest was done. Axial MIP volume rendering provided. Sagittal and coronal reformatted images were obtained. This CT examination was performed using dose optimization techniques as appropriate, variously including the following: *Automated exposure control *Adjustment of mA and/or kV according to patient size (this includes techniques or standardized protocols for targeted exams where dose is matched to indication/reason for exam; i.e. extremities or head) *Use of iterative reconstruction technique DLP: 233 mGy-cm FINDINGS: LUNGS: There is evidence of emphysema. There is cystic or bullous change at the right lung apex. Previously identified more inferior irregularly-shaped slightly spiculated parenchymal density inferior to this area in the right upper lobe appears similar to April 2021 exam. This measures maximum 0.8 x 1.5 cm in transverse and AP dimension axial image 117 series 5. There is adjacent pleural thickening that is stable. There is a new small partially cystic partially reticular area in the right upper lobe which may be related to focal bronchiectasis and bronchial wall thickening. This area measures maximum 4 mm axial image 139 series 5. No other new focal pulmonary findings. No endobronchial or endotracheal lesion. MEDIASTINUM: The mediastinum is normal. CORONARY ARTERY CALCIFICATION: Mild PLEURA: There is no pleural effusion. No pleural mass or thickening. AXILLA: No lymphadenopathy. UPPER ABDOMEN: Unremarkable. OSSEOUS STRUCTURES: Degenerative changes of the spine. 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 CT/CT chest wo IV con IMPRESSION: Emphysema and right apical bullous disease. Stable more inferior irregularly-shaped parenchymal density in the right upper lobe and adjacent pleural thickening from 2020 exam. New small area of a cystic and reticular change in the more anterior right upper lobe that may be related to bronchiectasis and bronchial wall thickening. Fleischner guidelines were followed.
== END 2022-05-23 16:26 | disposition home or self-care (01) ==
LOC: HO.CT 16:25
PROVIDERS: PCP Internal Medicine; Visit Provider Hospitalist
DX: R91.1 Solitary pulmonary nodule (principal)
CPT/HCPCS: 71250

== ENCOUNTER 2022-06-27 12:34 | Outpatient (REF) | payer MEDICARE, SELFPAY ==
--- NOTE | 2022-06-27 16:49 | PFT_ITS ---
INDICATION: COPD. SPIROMETRY: FEV1 to FVC is 70% with an FEV1 of 2.28 L, which is 76% predicted and FVC of 3.27 L, which is 83% predicted. No significant response to bronchodilator is noted. Maximum voluntary ventilation 78% predicted. LUNG VOLUME: Total lung capacity 89% predicted. DIFFUSION CAPACITY: DLCO 58% predicted. COMPARISON: None. INTERPRETATION: There is an obstructive ventilatory defect consistent with [id number] COPD. No significant response to bronchodilator is noted. Mild decrease in maximum voluntary ventilation secondary to likely deconditioning. Lung volumes are within normal limits. The patient does have a moderate diffusion impairment likely secondary to emphysematous changes and/or other pulmonary parenchymal condition should be considered. Correction for hemoglobin also be warranted. Clinical correlation warranted. Chet Shipman MD MR/MODL / [id number]
== END 2022-06-27 12:35 | disposition home or self-care (01) ==
LOC: HO.RESP 12:34
PROVIDERS: PCP Internal Medicine; Visit Provider Hospitalist
DX: J18.9 Pneumonia, unspecified organism (principal); R91.1 Solitary pulmonary nodule
CPT/HCPCS: 94060; 94727; 94729

== ENCOUNTER → 2022-07-07 10:57 | Outpatient (BNVA) | payer MEDICARE, SELFPAY | PROVIDERS: PCP Internal Medicine; Visit Provider Hospitalist | DX: J44.9 Chronic obstructive pulmonary disease, unspecified (principal); R91.1 Solitary pulmonary nodule; G47.33 Obstructive sleep apnea (adult) (pediatric) | CPT/HCPCS: 99212 ==

== ENCOUNTER → 2022-09-17 12:46 | Outpatient (BNVA) | payer MEDICARE, SELFPAY | PROVIDERS: PCP Internal Medicine; Visit Provider Urology | DX: N40.1 Benign prostatic hyperplasia with lower urinary tract symptoms (principal); N13.8 Other obstructive and reflux uropathy; R97.20 Elevated prostate specific antigen [PSA]; N52.9 Male erectile dysfunction, unspecified; Z79.899 Other long term (current) drug therapy | CPT/HCPCS: Q3014 ==

== ENCOUNTER 2023-05-18 09:08 | Outpatient (REF) | payer MEDICARE, SELFPAY ==
--- NOTE | ~2023-05-18 | CT_ITS ---
EXAMINATION: CT CHEST WITHOUT CONTRAST CLINICAL INFORMATION: Follow-up pulmonary nodules. COMPARISON: CT chest 05/23/2022 04/11/2021. TECHNIQUE: Multidetector volumetric CT imaging of the chest was done. Axial MIP volume rendering provided. Sagittal and coronal reformatted images were obtained. This CT examination was performed using dose optimization techniques as appropriate, variously including the following: *Automated exposure control *Adjustment of mA and/or kV according to patient size (this includes techniques or standardized protocols for targeted exams where dose is matched to indication/reason for exam; i.e. extremities or head) *Use of iterative reconstruction technique DLP: 146 mGy-cm FINDINGS: LUNGS: Centrilobular emphysema with severe right apical bullous disease. Irregular nodule area on the inferior aspect of the bullous disease in the right upper lobe measures 1.8 x 0.9 x 1.1 cm. On the study from 05/23/2022 this measured 1.8 x 0.7 x 0.8 cm when measured similarly. On the study from 04/11/2021 this measured 1.8 x 0.8 x 0.9 cm when measured similarly. Overall, likely no significant change allowing for differences in imaging technique, but correlation with biopsy results and continued surveillance are recommended. New small area of reticular change in the anterior right upper lobe seen previously is stable. No new suspicious pulmonary nodule. MEDIASTINUM: No adenopathy. No pericardial effusion. CORONARY ARTERY CALCIFICATION: Mild LAD calcium. PLEURA: There is no pleural effusion. No pleural mass or thickening. AXILLA: No lymphadenopathy. UPPER ABDOMEN: Unremarkable. OSSEOUS STRUCTURES: Degenerative changes in the spine. CT/CT chest wo IV con IMPRESSION: Stable irregular parenchymal nodule along the inferior margin of the right apical bullous disease. Recommend correlation with biopsy results and continued surveillance. Fleischner guidelines do not apply.
== END 2023-05-18 09:09 | disposition home or self-care (01) ==
LOC: HO.CT 09:08
PROVIDERS: PCP Internal Medicine; Visit Provider Hospitalist
DX: R91.1 Solitary pulmonary nodule (principal)
CPT/HCPCS: 71250

== ENCOUNTER 2023-06-08 15:19 | Outpatient (AMB) | payer MEDICARE, SELFPAY ==
[2023-06-08 15:26] VITALS: PULSE 61; O2SAT 96; BMI 23.5
--- NOTE | 2023-06-08 15:26 | MHC.OFFVIS ---
Intake Vital Signs 06/08/23 15:26 Height 5 ft 7 in Weight 150 lb BMI 23.5 Pulse 61 Pulse Source Pulse Oximeter Pulse Oximetry (%) 96 Oxygen Delivery Method Room Air Intake Visit Reasons: CT Chest Follow Up/COPD Calibration Specialist Required: No Allergies Penicillins Allergy (Intermediate, Verified 06/08/23 15:27) SWELLING HPI HPI Comments History of Present Illness Details The patient is a 68-year-old gentleman with a known history of COPD and the emphysema. The patient underwent a repeat CT scan of the chest to follow-up abnormal findings from 2018. The patient is found to have a interval worsening of a right upper lobe nodular density measuring more than a cm. Neoplasm is in the differential. The patient is high risk with history of smoking. I did personally review the CT scan of the chest that he had back in April 12, 2021 which demonstrated the right upper lobe increasing nodular density in addition to some areas of emphysema right more than left. In addition to that I did appreciate some areas of pneumonitis in the left mid lung zone. The patient denies any exposure to any farm exposure or pets. Denies any birds. He may have mold in the house. He does complaint of shortness of breath specially when going up a flight of stairs [id number] severity. Denies any cough denies any congestion. He does have a postnasal drip and does use Flonase. The patient also states that he has history of obstructive sleep apnea. He had a positive sleep study in the past. He continues to have daytime drowsiness. He does stop breathing while he sleeps in does have significant snoring that he has been told about. The patient does wake up tired and does have an elevated [place] score of 11/24. The patient at this point does have increased cardiovascular risk factors and therefore should undergo a repeat sleep study. I will request a home sleep study at this time. 06/07/2021 the patient is here for a pulmonary follow-up visit. Overall the patient has been doing well. He did undergo pulmonary function studies which were reviewed. pulmonary function studies demonstrate minimal COPD although he does have a moderate diffusion impairment. Patient also underwent a sleep study. The patient does have a very mild sleep apnea. The patient will continue monitoring his symptoms he continues to have significant daytime drowsiness day and will consider PAP therapy. In the meantime will try positional therapy. He will try not to sleep on his back. Patient also underwent a PET scan to assess the pulmonary nodule in the right upper lobe. The nodule did not demonstrate any significant FDG activity although it is concerning because of increasing size and spiculated appearance. Explained to him the patient the alternatives 1 which includes perform a CT-guided biopsy in view of the slightly enlarging nodule versus repeating the CT scan in 3 months time. The patient prefers to have a definitive answer and therefore will arrange for CT-guided biopsy of the right upper lobe nodular density. 07/05/2021 the patient is here for pulmonary follow-up visit. Overall he is doing well. Continues to have dyspnea on exertion specially when going up a few flights of stairs. Otherwise he denies any other complaints. He does not have any inhalers at this time. He has not looking to start any new medications at this time. We did review again his pulmonary function studies demonstrating a moderate decrease in his diffusing capacity likely secondary to emphysema. Explained to him that he needs to continue exercising maintaining good condition. In the meantime we did review his recent CT-guided biopsy which is reassuring suggesting some areas of scarring with normal lung parenchyma. These biopsies are very accurate but not 100%. Therefore will plan to repeat the CT scan in a year's time. Will also plan to repeat his pulmonary function studies at that time. In the meantime we did talk about his sleep study. The patient does have mild sleep apnea. He is also very symptomatic with an EPWORTH score 11/24. He will consider starting CPAP therapy at this time. 07/07/2022 the patient is here for a pulmonary follow-up visit. The patient overall is feeling well. Denies any significant shortness of breath or cough. She continues to work regularly at [employer]. No significant physical or respiratory limitations. The patient did undergo pulmonary function studies which I personally reviewed with him. He appears to have mild to moderate COPD. Because of the emphysema he also has a moderate diffusion impairment. He does not use any inhalers. At this point he does not feel like he needs 1. Therefore he will continue to monitor his symptoms closely. If he were to develop any viral syndrome sometimes he may activate is COPD and therefore he can always call the office for an assessment then. The patient also had underwent a CT scan of the chest back in May 2022 which demonstrated stable scar like changes in the right upper lobe with some small pulmonary nodules. This is the area was biopsied demonstrating fibroelastic disease suggesting scar. It is reassuring to that if the PET scan did not demonstrate any significant activity. In addition to that there appears to be new 3 mm pulmonary nodule in the left hemithorax. Patient is aware. I reassured him. Will plan to repeat the CT scan in 05/2023. He is concerned about his sleep apnea. He is still having snoring. 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 We did talk about mandibular advancement devices. I did recommend for him to consider starting CPAP specially if he continues to be symptomatic. He is reluctant to do so. He is going to look into the mandibular devices 1st. 06/08/2023 the patient is here for a pulmonary follow-up visit. The patient overall has been doing well. He is still working full-time. Denies any significant shortness of breath. He has not required any inhalers for COPD. The patient also did try the mouthpiece for his sleep apnea. Although I did cause him to have teeth discomfort therefore he stopped it. I did recommend he can consider using 1 that can be adjusted. The patient will look into it. In the meantime he did have a repeat CT scan of the chest. I did look at the images with him and also compared to the CT scan he had a year ago. 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 This is an area that was tested with a CT-guided biopsy without any significant malignancy which is reassuring although because the size in the irregularity and the fact that the biopsies not 100% will continue to monitor this area. He will return in a year's time with a repeat CT scan. If the patient develops any worsening symptoms prior to this he will call for an earlier assessment. [facility] Medical History BPH (benign prostatic hyperplasia) COPD (chronic obstructive pulmonary disease) Elevated cholesterol Hepatitis C MINGO (obstructive sleep apnea) Pneumonitis Pulmonary nodule Surgical History H/O colonoscopy History of esophagogastroduodenoscopy (EGD) History of lung biopsy History of prostate surgery Hx of bilateral inguinal hernia repair Hx of circumcision Hx of right inguinal hernia repair Social History Patient Tobacco Use Status: Never used Tobacco Substance Use Type: Marijuana Review of Systems Const Reports daytime sleepiness, Reports headache(s), Denies night sweats, Reports snoring, Reports stops breathing during sleep and Denies weight loss ENT Denies change in voice, Reports headache(s), Denies lip swelling, Denies mouth pain, Reports nasal congestion, Reports nasal discharge and Denies tongue swelling Card Denies chest pain and Reports dyspnea on exertion Resp Reports cough, Reports dyspnea on exertion and Reports snoring GI Denies abdominal pain Musc Denies no additional complaints Neuro Denies Neuro-related abnormal movements and Reports headache(s) Psych Denies no additional complaints Daren/Lymph Denies easy bleeding and Denies lymphadenopathy Aller/Immun Denies lip swelling and Denies tongue swelling Physical Exam Vital Signs: Last Vital Signs Pulse 61 06/08/23 15:26 Pulse Ox 96 06/08/23 15:26 Oxygen Delivery Method Room Air 06/08/23 15:26 BMI result Body Mass Index 23.5 Const General: alert Neck Neck: Yes normal visual inspection, Yes full ROM and Yes no lymphadenopathy Chest Chest palpation & inspection: normal inspection of the chest Resp Auscultation: diminished lung sounds Cardio Rate: regular rate Rhythm: regular rhythm Heart sounds: S1 normal heart sound present and S2 normal heart sound present GI Palpation (GI): Soft to palpation and nontender Auscultation: normal bowel sounds Skin General skin exam: rashes and/or lesions noted Assessment & Plan Assessment & Plan (1) Pulmonary nodule: Comment: had lung biopsy 06/2021 Code(s): R91.1 - Solitary pulmonary nodule (2) COPD (chronic obstructive pulmonary disease): Code(s): J44.9 - Chronic obstructive pulmonary disease, unspecified Qualifiers: COPD type: chronic bronchitis Chronic bronchitis type: simple Qualified Code(s): J41.0 - Simple chronic bronchitis (3) MINGO (obstructive sleep apnea): Comment: Mild; AHI 5.7 (no CPAP yet) Code(s): G47.33 - Obstructive sleep apnea (adult) (pediatric) Plan Consider starting APAP therapy. Will continue positional therapy No need for inhalers maintenance at this time. The pt does not want a rescue inhaler at this time. Repeat CT scan of the chest in 1 year follow-up in 1 year sooner if any other issues arise. Orders: Orders CT chest wo IV con 364 Days R91.1 - Solitary pulmonary nodule Coding Level of Care Code Est Pt Level 4 (97087) Diagnoses Pulmonary nodule R91.1 Simple chronic bronchitis J41.0 COPD type: chronic bronchitis Chronic bronchitis type: simple MINGO (obstructive sleep apnea) G47.33 Time Spent (min) 16
== END 2023-06-08 15:43 | disposition home or self-care (01) ==
PROVIDERS: PCP Internal Medicine; Visit Provider Hospitalist
DX: R91.1 Solitary pulmonary nodule (principal); J41.0 Simple chronic bronchitis; G47.33 Obstructive sleep apnea (adult) (pediatric)
CPT/HCPCS: 99214

== ENCOUNTER → 2023-06-08 15:19 | Outpatient (BNVA) | payer MEDICARE, SELFPAY | PROVIDERS: PCP Internal Medicine; Visit Provider Hospitalist | DX: R91.1 Solitary pulmonary nodule (principal); J41.0 Simple chronic bronchitis; G47.33 Obstructive sleep apnea (adult) (pediatric) | CPT/HCPCS: 99212 ==

== ENCOUNTER 2023-07-21 14:36 | Outpatient (REF) | payer MEDICARE, SELFPAY ==
--- NOTE | ~2023-07-21 | XR_ITS ---
EXAMINATION: XR FOOT, LEFT CLINICAL INFORMATION: Pain in left great toe COMPARISON: None available. TECHNIQUE: AP, lateral, and oblique views of the left foot. FINDINGS: The bones are intact. There is mild soft tissue fullness medial to the head of the first metatarsal. There is mild narrowing of the first metatarsophalangeal joint. No fracture. Alignment is anatomic. Joint spaces are maintained. XR/XR foot LT min 3V IMPRESSION: 1. No acute bony abnormality. 2. Mild degenerative change of the first metatarsophalangeal joint.
== END 2023-07-21 14:37 | disposition home or self-care (01) ==
LOC: HO.HHCX 14:36
PROVIDERS: Visit Provider Internal Medicine
DX: M79.675 Pain in left toe(s) (principal)
CPT/HCPCS: 73630

== ENCOUNTER 2023-08-21 09:48 | Outpatient (REF) | payer MEDICARE, SELFPAY ==
[2023-08-21 12:03] LABS: Alanine Aminotransferase 17 U/L (0-40); Albumin Level 4.3 g/dL (3.5-5.0); Alkaline Phosphatase 85 U/L (39-117); Anion Gap 12 (12-20); Aspartate Amino Transferase 31 U/L (5-37); Bilirubin Direct 0.2 mg/dL (0.0-0.5); Bilirubin Total 0.5 mg/dL (0.0-1.0); Blood Urea Nitrogen 18 mg/dL (9-16); Calcium 9.3 mg/dL (8.4-10.2); Carbon Dioxide 32 mmol/L (22-29); Chloride 104 mmol/L (96-108); Cholesterol 185 mg/dL (<200); Estimated Glomerular Filt Rate > 60; Glucose Random 77 mg/dL (60-115); HDL Cholesterol 55 mg/dL (>40); LDL Cholesterol Calculated 94 mg/dL (<100); Potassium 4.5 mmol/L (3.3-5.1); Sodium 143 mmol/L (135-145); Total Protein 7.6 g/dL (6.5-8.0); Triglycerides 182 mg/dL (<150)
[2023-08-21 13:13] LABS: Reflex LDLD? No
== END 2023-08-21 09:49 | disposition home or self-care (01) ==
LOC: HO.HHCL 09:48
PROVIDERS: Visit Provider Internal Medicine
DX: N40.1 Benign prostatic hyperplasia with lower urinary tract symptoms (principal); N13.8 Other obstructive and reflux uropathy; R35.0 Frequency of micturition; E78.2 Mixed hyperlipidemia; J43.2 Centrilobular emphysema
CPT/HCPCS: 36415; 80048; 80061; 80076

== ENCOUNTER 2023-09-09 12:26 | Outpatient (REF) | payer MEDICARE, SELFPAY ==
[2023-09-09 14:43] LABS: Prostate Specific Antigen 5.51 ng/mL (<0.05-4.0)
== END 2023-09-09 12:27 | disposition home or self-care (01) ==
LOC: HO.LAB 12:26
PROVIDERS: PCP Internal Medicine; Visit Provider Urology
DX: Z12.5 Encounter for screening for malignant neoplasm of prostate (principal); N40.1 Benign prostatic hyperplasia with lower urinary tract symptoms; N13.9 Obstructive and reflux uropathy, unspecified
CPT/HCPCS: 36415; 84153

== ENCOUNTER 2023-09-18 13:03 | Outpatient (AMB) | payer MEDICARE, SELFPAY ==
--- NOTE | 2023-09-18 13:26 | A.OFFVIS_ITS ---
Intake Visit Reasons: 1Y PSA(set) Intake Note: Patient is Present for Follow Up Urology Medication: Sildenafil Antibiotic Allergies:Penicillins Blood Thinners:None Allergies Penicillins Allergy (Intermediate, Verified 09/18/23 13:27) SWELLING HPI Comments Details: David is a pleasant male. He is a patient of Dr. Owen. He is seen for the following urologic conditions - lower urinary tract symptoms - elevated PSA - erectile dysfunction Twelve month follow-up PSA elevation secondary to coming off finasteride Will restart finasteride Still good response to on demand sildenafil Refill provided Lower urinary tract symptoms Longstanding Initial symptoms Nocturia 3 times per night, Mild weakness of stream Prior therapy Flomax 0.8 mg and finasteride Large BRYCE on exam Prostate intervention GreenLight laser 09/20 - normalization of voiding parameters Elevated PSA Known chronic inflamed prostate PSA historically between 5 and 6.8 PSA 04/19 5.0, 07/23 3, 01/20 2.1, 09/22 5.5 Erectile dysfunction Good response to 100 mg sildenafil Prescription through [facility] Medical History BPH (benign prostatic hyperplasia) Elevated cholesterol Hepatitis C MINGO (obstructive sleep apnea) COPD (chronic obstructive pulmonary disease) Pneumonitis Pulmonary nodule Surgical History History of prostate surgery Hx of bilateral inguinal hernia repair Hx of right inguinal hernia repair History of esophagogastroduodenoscopy (EGD) H/O colonoscopy Hx of circumcision History of lung biopsy Social History Patient Tobacco Use Status: Never used Tobacco Substance Use Type: Marijuana Review of Systems Const Denies chills and Denies fever(s) Card Reports no additional complaints and Denies syncope Resp Denies cough GI Denies abdominal pain and Denies heartburn Reports as per HPI and Denies change in libido Neuro Denies syncope Psych Denies change in libido Endo Denies change in libido Physical Exam Const General: cooperative, healthy appearing, comfortable and no acute distress Orientation/consciousness: patient oriented x3 HEENT Face and sinus: Yes normal facial exam Mouth: moist mucous membranes Neck Neck: Yes normal visual inspection, Yes full ROM and Yes trachea midline Chest Chest palpation & inspection: normal inspection of the chest Resp Effort & Inspection: normal respiratory effort, able to speak in complete sentences and no respiratory distress GI Inspection: Yes normal to inspection Back/Spine/Pelvis Cervical Spine: normal cervical lordosis Thoracic/Lumbar Spine: thoracic and lumbar spine normal to inspection Skin General skin exam: no rashes or lesions noted Neuro General: patient oriented x3, gait normal, tone normal and moves all extremities Extrem General: Yes normal to inspection and Yes capillary refill normal Assessment & Plan Assessment & Plan (1) BPH with obstruction/lower urinary tract symptoms: Code(s): N40.1 - Benign prostatic hyperplasia with lower urinary tract symptoms; N13.8 - Other obstructive and reflux uropathy Category: Medical (2) Elevated PSA: Code(s): R97.20 - Elevated prostate specific antigen [PSA] Category: Medical (3) Erectile dysfunction: Code(s): N52.9 - Male erectile dysfunction, unspecified Category: Medical Plan Restart finasteride 3 days a week Refill Viagra Six-month follow-up repeat PSA Orders: Orders Prostate Specific Antigen 6 Months R97.20 - Elevated prostate specific antigen [PSA] Medications: New finasteride 5 mg PO DAILY 90 days 90 tabs 1RF N13.8 - Other obstructive and reflux uropathy, N40.1 - Benign prostatic hyperplasia with lower urinary tract s ymptoms, R33.9 - Retention of urine, unspecified Patient Instructions: Imaging studies, laboratory and physical exam results were discussed and reviewed in detail. No major barriers to patient understanding were identified. An opportunity to ask questions regarding the treatment plan was provided. All questions were answered. The patient expressed understanding and agreement with the above treatment plan. The patient is aware they should contact our office by phone for worsening of their current condition or the appearance of new urologic symptoms. Compliance is encouraged with any medications and followup testing that is ordered. It is a privilege to participate in the urologic care of your patient. If you have any questions or concerns regarding treatment for the above conditions, or other urologic issues, please do not hesitate to contact me. The office telephone contact is [phone]. This note is constructed using voice recognition software. While every effort has been made to ensure accuracy statement request clerk errors may have been included. Yours sincerely, Dr Anthony Lorenz MD, [facility] - Urology Providers of Expert, Compassionate Care for the Genitourinary System
== END 2023-09-18 14:00 | disposition home or self-care (01) ==
PROVIDERS: Visit Provider Urology
DX: N40.1 Benign prostatic hyperplasia with lower urinary tract symptoms (principal); N13.8 Other obstructive and reflux uropathy; R97.20 Elevated prostate specific antigen [PSA]; N52.9 Male erectile dysfunction, unspecified
CPT/HCPCS: 99214

== ENCOUNTER → 2023-09-18 13:03 | Outpatient (BNVA) | payer MEDICARE, SELFPAY | PROVIDERS: Visit Provider Urology | DX: N40.1 Benign prostatic hyperplasia with lower urinary tract symptoms (principal); N13.8 Other obstructive and reflux uropathy; R33.9 Retention of urine, unspecified; R97.20 Elevated prostate specific antigen [PSA]; N52.9 Male erectile dysfunction, unspecified | CPT/HCPCS: 99212 ==

== ENCOUNTER 2024-04-19 16:04 | Outpatient (REF) | payer MEDICARE, SELFPAY ==
[2024-04-19 17:31] LABS: Prostate Specific Antigen 2.11 ng/mL (<0.05-4.0)
== END 2024-04-19 16:05 | disposition home or self-care (01) ==
LOC: HO.LAB 16:04
PROVIDERS: PCP Internal Medicine; Visit Provider Urology
DX: R97.20 Elevated prostate specific antigen [PSA] (principal); Z12.5 Encounter for screening for malignant neoplasm of prostate
CPT/HCPCS: 36415; 84153

== ENCOUNTER 2024-04-27 11:06 | Outpatient (AMB) | payer MEDICARE, SELFPAY ==
--- NOTE | 2024-04-27 11:19 | MHC.OFFVIS ---
Intake Visit Reasons: 6M/PSA(set) Intake Note: Patient is Present for Follow Up PSA Urology Medication: Finasteride, Sildenafil Antibiotic Allergies:Penicillins Blood Thinners: None PSA: 04/19/24 2.11 Senior Financial Consultant Required: No Accompanied by: Self / Same As Patient Allergies Penicillins Allergy (Intermediate, Verified 04/27/24 11:22) SWELLING HPI Comments Details: David is a pleasant male. He is a patient of Dr. Owen. He is seen for the following urologic conditions - lower urinary tract symptoms - elevated PSA - erectile dysfunction 8 month follow-up PSA decline after restarting finasteride Thursday, Thursday, Thursday Still good response to on demand sildenafil Refill provided Lower urinary tract symptoms Longstanding Initial symptoms Nocturia 3 times per night, Mild weakness of stream Prior therapy Flomax 0.8 mg and finasteride Large BRYCE on exam Prostate intervention GreenLight laser 09/20 - normalization of voiding parameters Elevated PSA Known chronic inflamed prostate PSA historically between 5 and 6.8 PSA 04/19 5.0, 07/23 3, 01/20 2.1, 09/22 5.5. 04/24 2.1 Erectile dysfunction Good response to 100 mg sildenafil Prescription through [facility] Medical History BPH (benign prostatic hyperplasia) Elevated cholesterol Hepatitis C MINGO (obstructive sleep apnea) COPD (chronic obstructive pulmonary disease) Pneumonitis Pulmonary nodule Surgical History History of prostate surgery Hx of bilateral inguinal hernia repair Hx of right inguinal hernia repair History of esophagogastroduodenoscopy (EGD) H/O colonoscopy Hx of circumcision History of lung biopsy Social History Patient Tobacco Use Status: Never used Tobacco Substance Use Type: Marijuana Review of Systems Const Denies chills and Denies fever(s) Card Reports no additional complaints and Denies syncope Resp Denies cough GI Denies abdominal pain and Denies heartburn Reports as per HPI and Denies change in libido Neuro Denies syncope Psych Denies change in libido Endo Denies change in libido Physical Exam Const General: cooperative, healthy appearing, comfortable and no acute distress Orientation/consciousness: patient oriented x3 HEENT Face and sinus: Yes normal facial exam Mouth: moist mucous membranes Neck Neck: Yes normal visual inspection, Yes full ROM and Yes trachea midline Chest Chest palpation & inspection: normal inspection of the chest Resp Effort & Inspection: normal respiratory effort, able to speak in complete sentences and no respiratory distress GI Inspection: Yes normal to inspection Back/Spine/Pelvis Cervical Spine: normal cervical lordosis Thoracic/Lumbar Spine: thoracic and lumbar spine normal to inspection Skin General skin exam: no rashes or lesions noted Neuro General: patient oriented x3, gait normal, tone normal and moves all extremities Extrem General: Yes normal to inspection and Yes capillary refill normal Assessment & Plan Assessment & Plan (1) BPH with obstruction/lower urinary tract symptoms: Code(s): N40.1 - Benign prostatic hyperplasia with lower urinary tract symptoms; N13.8 - Other obstructive and reflux uropathy Category: Medical (2) Elevated PSA: Code(s): R97.20 - Elevated prostate specific antigen [PSA] Category: Medical (3) Erectile dysfunction: Code(s): N52.9 - Male erectile dysfunction, unspecified Category: Medical Plan Surveillance PSA Refill prescription Orders: Orders Prostate Specific Antigen 6 Months R97.20 - Elevated prostate specific antigen [PSA] Patient Instructions: Imaging studies, laboratory and physical exam results were discussed and reviewed in detail. No major barriers to patient understanding were identified. An opportunity to ask questions regarding the treatment plan was provided. All questions were answered. The patient expressed understanding and agreement with the above treatment plan. The patient is aware they should contact our office by phone for worsening of their current condition or the appearance of new urologic symptoms. Compliance is encouraged with any medications and followup testing that is ordered. It is a privilege to participate in the urologic care of your patient. If you have any questions or concerns regarding treatment for the above conditions, or other urologic issues, please do not hesitate to contact me. The office telephone contact is [phone]. This note is constructed using voice recognition software. While every effort has been made to ensure accuracy senior business architect errors may have been included. Yours sincerely, Dr Anthony Lorenz MD, [facility] - Urology Providers of Expert, Compassionate Care for the Genitourinary System Coding Level of Care Code Est Pt Level 3 (83916) Diagnoses BPH with obstruction/lower urinary tract symptoms N40.1; N13.8 Elevated PSA R97.20 Erectile dysfunction N52.9
== END 2024-04-27 11:45 | disposition home or self-care (01) ==
PROVIDERS: PCP Internal Medicine; Visit Provider Urology
DX: N40.1 Benign prostatic hyperplasia with lower urinary tract symptoms (principal); N13.8 Other obstructive and reflux uropathy; R97.20 Elevated prostate specific antigen [PSA]; N52.9 Male erectile dysfunction, unspecified
CPT/HCPCS: 99213

== ENCOUNTER → 2024-04-27 11:06 | Outpatient (BNVA) | payer MEDICARE, SELFPAY | PROVIDERS: PCP Internal Medicine; Visit Provider Urology | DX: N40.1 Benign prostatic hyperplasia with lower urinary tract symptoms (principal); N13.8 Other obstructive and reflux uropathy; N52.9 Male erectile dysfunction, unspecified; R97.20 Elevated prostate specific antigen [PSA] | CPT/HCPCS: 99212 ==

== ENCOUNTER 2024-05-06 14:04 | Outpatient (REF) | payer MEDICARE, SELFPAY ==
--- NOTE | ~2024-05-06 | CT_ITS ---
EXAMINATION: CT CHEST WITHOUT CONTRAST CLINICAL INFORMATION: Solitary pulmonary nodule. COMPARISON: May 18, 2023 and May 23, 2022 TECHNIQUE: Multidetector volumetric CT imaging of the chest was done. Axial MIP volume rendering provided. Sagittal and coronal reformatted images were obtained. This CT examination was performed using dose optimization techniques as appropriate, variously including the following: *Automated exposure control *Adjustment of mA and/or kV according to patient size (this includes techniques or standardized protocols for targeted exams where dose is matched to indication/reason for exam; i.e. extremities or head) *Use of iterative reconstruction technique DLP: 156 mGy-cm FINDINGS: LUNGS: Centrilobular emphysema with severe right apical bullous disease and scarring. Irregular nodule along the inferior aspect of the bullous disease in the right upper lobe measures 1.8 x 0.9 cm and is unchanged from May 18, 2023 allowing for technical differences. No new pulmonary nodule. No airspace consolidation. Central airways are patent. MEDIASTINUM: Imaged thyroid gland is unremarkable. No bulky mediastinal or hilar lymphadenopathy. Great vessels are of normal caliber. Heart size is normal. No pericardial effusion. CORONARY ARTERY CALCIFICATION: Mild. PLEURA: There is no pleural effusion. No pleural mass or thickening. AXILLA/CHEST WALL: No axillary lymphadenopathy. Lymphovascular. UPPER ABDOMEN: No adrenal mass. OSSEOUS STRUCTURES: No destructive bone lesions. CT/CT chest wo IV con IMPRESSION: No significant interval change in nodularity along the inferior margin of the right apical bullous disease/scarring. Continued imaging surveillance is clinically indicated. Electronically signed by: Eric Grossman MD 06/29/2024 11:21 AM [facility] [place]
== END 2024-05-06 14:05 | disposition home or self-care (01) ==
LOC: HO.CT 14:04
PROVIDERS: PCP Internal Medicine; Visit Provider Hospitalist
DX: R91.1 Solitary pulmonary nodule (principal)
CPT/HCPCS: 71250

== ENCOUNTER 2024-09-14 08:38 | Outpatient (REF) | payer MEDICARE, SELFPAY ==
--- OUTSIDE RECORDS SUMMARY | 2024-09-14 08:59 | XMS_ITS | Encounter Summary ---
Author Organization [employer] Address [address] [place] [address] [address] [place] [address] Care Team Providers Care Java J2Ee Software Engineer Name Role Phone William Daniel MD Primary Care Provide r Encounter Details Date Type Department Care Team (Latest Contact Info) Description 02/06/2022 Abstract [facility] CONVERSIONS Dental, Provider, DDS Social History Tobacco Use Types Packs/Day Years Used Date Smoking Tobacco: Never Assessed Sex and Gender Information Value Date Recorded Sex Assigned at Male 03/31/2022 10:18 AM EDT Legal Sex Male 10:18 AM EDT Gender Identity Male 03/31/2022 10:18 AM EDT Sexual Orientation Straight 03/31/2022 10 :18 AM EDT documented as of this encounter Plan of Treatment Not on file documented as of this encounter Visit Diagnoses Not on filedocumented in this encounter Care Teams Java J2Ee Software Engineer Relationship Specialty Start Date End Date William Daniel MD [address] [place] [id number] PCP - General Internal Medicine 03/07/21 documented as of this encounter
--- OUTSIDE RECORDS SUMMARY | 2024-09-14 08:59 | XMS_ITS | Clinical Summary ---
Author Organization [facility] Address [address] [place] [address] Care Team Providers Care Vasc Tech Name Role Phone William Owen Primary Care Provider + Allergies Active Allergy Reactions Criticality Noted Date Comments Penicillins Rash Low 08/13/2011 Medications timolol (TIMOPTIC) 0.5% ophthalmic solution SMARTSI Drop(s) In Eye(s) Twice Daily 3 Active terbinafine (LamiSIL) 250 mg tablet SMARTSI Tablet(s) By Mouth Every Morning Active sildenafiL (VIAGRA) 100 mg tablet SMARTSI Tablet(s) By Mouth Daily PRN Active diclofenac (VOLTAREN) 1% gel Apply 2 g topically to the affected area 4 times a day. 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 Urinary Tract Infection 02/06/2011 Social History Tobacco Use Types Packs/Day Years Used Date Smoking Tobacco: Former Smokeless Tobacco: Never Tobacco Cessation:Counseling Given: Not Answered Comments:: Sex and Gender Information Value Date Recorded Sex Assigned at Not on file Legal Sex Male 1:29 AM EDT Gender Identity Not on file Sexual Orientation Not on file Last Filed Vital Signs Vital Sign Reading Time Taken Comments Blood Pressure 136/82 07/07/2011 11:31 AM EST Pulse 78 07/07/2011 11:31 AM EST Temperature - - Respiratory Rate - - Oxygen Saturation - - Inhaled Oxygen Concentration - - Weight 68.9 kg (152 lb) 07/07/2011 11:31 AM EST Height 170.2 cm (5' 7 ) 07/07/2011 11:31 AM EST Body Mass Index 23.81 07/07/2011 11:31 AM EST Plan of Treatment Health Maintenance Due Date Last Done Comments Cologuard 1955 Colon Cancer Screening 1955 Colonoscopy 1955 FOBT / Fit Test 1953 Hepatitis C Screening [address] Lung Cancer Screening (Baseline) 2003 RSV Vaccine (60+ years old and patients) (1 - Risk 60-74 years 1-dose series) 2013 Zoster Vaccines (2 of 3) 08/08/2014 06/13/2014 Abdominal Aortic Aneurysm (AAA) Screening 2018 DTaP,Tdap,and Td Vaccines (2 - Td or Tdap) 06/13/2023 06/13/2013, 12/13/2004 COVID-19 Vaccine ( season) 2024 03/10/2023, 03/07/2022, 04/20/2021, Additional history exists Alcohol/Substance Use Screening 06/01/2024 Depression Screening and Follow-Up 06/01/2024 Health Care Proxy Review 06/01/2024 Social Drivers of Health Annual Screening 06/01/2024 Influenza Vaccine (Season Ended) 2025 03/10/2023, 04/01/2021, 02/01/2019, Additional history exists Pneumococcal Vaccine: 50+ Years (3 of 3 - PCV20 or PCV21) 10/08/2026 10/08/2021, 06/13/2013 Hepatitis B Vaccines Aged Out No long er eligible based on patient's age to complete this topic Insurance [facility] Care Teams Vasc Tech Relationship Specialty Start Date End Date William Owen [address] [place] [phone] PCP - General Internal Medicine 07/28/23
--- OUTSIDE RECORDS SUMMARY | 2024-09-14 08:59 | XMS_ITS | Referral Summary ---
Author Organization [facility] Address [address] [place] [address] Care Team Providers Care News Reporter Name Role Phone William Owen Primary Care [...] 07/07/2011 11:31 AM EST Plan of [id number] [facility] Care Teams News Reporter Relationship Specialty Start Date End Date William Owen [address] [place] [id number] PCP - General Internal Medicine 07/28/23
--- OUTSIDE RECORDS SUMMARY | 2024-09-14 08:59 | XMS_ITS | Encounter Summary ---
Author Organization [employer] Address [address] [place] [address] [address] [place] [address] Care Team Providers Care Open Pit Quarry Supervisor Name Role Phone William Daniel MD Primary Care Provide r Encounter Details Date Type Department Care Team (Latest Contact Info) Description 10/26/2020 Abstract [facility] Dental, Provider, DDS Social [...] on filedocumented in this encounter Care Teams Open Pit Quarry Supervisor Relationship Specialty Start Date End Date William Daniel MD [address] [place] [id number] PCP - General Internal Medicine 03/07/21 documented as of this encounter
--- OUTSIDE RECORDS SUMMARY | 2024-09-14 08:59 | XMS_ITS | Encounter Summary ---
Author Organization [employer] Address [address] [place] [address] [address] [place] [address] Care Team Providers Care Certified Mortician Name Role Phone William Daniel MD Primary Care Provide r Encounter Details Date Type Department Care Team ([facility] st Contact Info) Description 10/02/2022 Abstract [facility] MEDICINE [address] [place], [place] [phone] William Daniel MD [address] [place] [address] Social History Tobacco Use Types Packs/Day Years Used Date Smoking Tobacco: Former Cigarettes Smokeless Tobacco: Never Depression Answer Date Recorded Patient Health Questionnaire-9 Score 0 08/19/2022 Depression Answer Date Recorded Patient Health Questionnaire-2 Score 0 08/19/2022 Sex and Gender Information Value Date Recorded Sex Assigned at Male 03/31/2022 10:18 AM EDT Legal Sex Male 10:18 AM EDT Gender Identity Male 03/31/2022 10:18 AM EDT Sexual Orientation Straight 03/31/2022 10 :18 AM EDT documented as of this encounter Plan of Treatment Not on file documented as of this encounter Procedures Procedure Name Priority Date/Time Associated Diagnosis Comments COLONOSCOPY Routine 11/11/2021 documented in this encounter Results * Colonoscopy (11/11/2021) Colonoscopy Normal Normal 11/11/2021 Narrative [place]ula Kyle - 11/11/2021 11:05 AM EDT Recommended 3 year follow up ( see scanned notes) us Historical Provider HEALTH MAINTENANCE Final Result documented in this encounter Visit Diagnoses Not on filedocumented in this encounter Additional Health Concerns Assessment Noted Time PHQ-9 Depression Total Score: 0 08/20/19 23 2:23 PM EDT documented as of this encounter Care Teams Certified Mortician Relationship Specialty Start Date End Date William Daniel MD [address] [place] [id number] PCP - General Internal Medicine 03/07/21 documented as of this encounter
--- OUTSIDE RECORDS SUMMARY | 2024-09-14 08:59 | XMS_ITS | Encounter Summary ---
Author Organization [employer] Address [address] [facility] 7t [place] [address] Care Team Providers Care Algologist Name Role Phone William Daniel MD Primary Care Provide r Reason for Visit * Reason Comments Med Refill Encounter Details Date Type Department Care Team (Late st Contact Info) Description 10/10/2023 Refill [facility] MEDICINE [address] [place], [place] [phone] William Daniel MD [address] [place], [place] [phone] Onychomycosis of great toe Social History Tobacco Use Types Packs/Day Years Used Date Smoking Tobacco: Former Cigarettes Passive Smoke Exposure: Past Smokeless Tobacco: Never Depression Answer Date Recorded Patient Health Questionnaire-9 Score 0 08/19/2022 Housing Stability Answer Date Recorded What is your housing situation today? I have yvan fish 04/11/[address] you li ve. Do you have problems with any of the following? None of the above 04/11/2023 Food Insecurity Answer Date Recorded Within the past 12 months, y ou worried that your food would run out before you got money to buy more: Never True 04/11/2023 Within the past 12 months,th e food you bought just didn't last and you didn't have enough money to get more: Never True 04/2023 Transportation Answer Date Recorded In the past 12 months, has l ack of transportation kept you from medical appts, meetings, work or from getting things needed for daily living? No 04/11/2023 Utilities Answer Date Recorded In the past 12 months, has t he electric, gas, oil or water company threatened to shut off services in your home? No 04/11/2023 Depression Answer Date Recorded Patient Health Questionnaire-2 [...] documented as of this encounter Visit Diagnoses Diagnosis Onychomycosis of great toe documented in this encounter Additional Health Concerns Assessment Noted Time PHQ-9 Depression Total Score: 0 08/20/19 23 2:23 PM EDT documented as of this encounter Care Teams Algologist Relationship Specialty Start Date End Date William Daniel MD [address] [place] [phone] PCP - General Internal Medicine 03/07/21 documented as of this encounter
--- OUTSIDE RECORDS SUMMARY | 2024-09-14 08:59 | XMS_ITS | Encounter Summary ---
Author Organization [employer] Address [address] [facility] [address] [place] [address] Care Team Providers Care Ager Tender Name Role Phone William Daniel MD Primary Care Provide r Reason for Visit * Reason Onset Date Comments Appointment Request 06/05/2023 Encounter Details Date Type Department Care Team ([facility] Contact Info) Description 06/05/2023 Telephone [facility] MEDICINE [address] [place] [address] William Daniel MD [address] [place], [place] [phone] Appointment Request Social History Tobacco Use Types Packs/Day Years [...] AM EDT documented as of this encounter Miscellaneous Notes * Telephone Encounter - Rickie Sanchez - 06/05/2023 10:42 AM EST Tc from patient calling to make a appt with PCP stated there is no concerns at this time just wouldlike a follow up documented in this encounter Plan of Treatment Not on file documented as of this encounter Visit Diagnoses Not on filedocumented in this encounter Additional Health Concerns Assessment Noted Time PHQ-9 Depression Total Score: 0 08/20/19 23 2:23 PM EDT documented as of this encounter Care Teams Ager Tender Relationship Specialty Start Date End Date William Daniel MD [address] [place] [id number] PCP - General Internal Medicine 03/07/21 documented as of this encounter
--- OUTSIDE RECORDS SUMMARY | 2024-09-14 08:59 | XMS_ITS | Encounter Summary ---
Author Organization [facility] Address [address] [place] [address] [address] [place] [address] Care Team Providers Care A Auxiliary Name Role Phone William Daniel MD Primary Care Provide r Encounter Details Date Type Department Care Team ([facility] st Contact Info) Description 06/17/2022 Telephone [facility] MEDICINE [address] [place], [place] [phone] William Daniel MD [address] [place] [address] Social History Tobacco Use Types Packs/Day Years [...] on filedocumented in this encounter Care Teams A Auxiliary Relationship Specialty Start Date End Date William Daniel MD [address] [place] [phone] PCP - General Internal Medicine 03/07/21 documented as of this encounter
--- OUTSIDE RECORDS SUMMARY | 2024-09-14 08:59 | XMS_ITS | Clinical Summary ---
Author Organization [employer] Address [address] [place] [address] 7[address] [place] [address] Care Team Providers Care Firewall Administrator Name Role Phone William Daniel MD Primary Care Provide r Allergies Active Allergy Reactions Criticality Noted Date Comments Penicillins Rash Low 08/13/2011 Medications timolol (Timoptic) 0.5 % ophthalmic solution PLACE 1 DROP IN EACH EYE TWICE DAILY 2 Active fluticasone (Flonase Allergy Relief) 50 MCG/ACT nasal spray Administer 2 sprays into affected nostril(s) at bed time. 1 Active Active Problems Problem Noted Date Diagnosed Date Great toe pain 07/21/2023 Overview (07/21/2023): Bilateral great toe pain Left > right Exam suggestive of onychomycosis on the right Plan: Terbinafine x 3 months Podiatry evaluation Missing teeth, acquired 07/13/2023 Preventative health care 08/19/2022 Assessment & Plan (08/02/2024 2:10 PM EST): PSA: 09/09/2023 Normal Colonoscopy 11/11/2021 showed a Tubular adenoma 3 yr follow up recommended Assessment & Plan (02/04/2024 10:52 AM EDT): Physical exam within normal limits PSA: 09/09/2023 Normal Colonoscopy 11/11/2021 showed a Tubular adenoma 3 yr follow up recommended Assessment & Plan (08/19/2022 2:46 PM EDT): Physical exam within normal limits Colonoscopy 11/11/2021 showed a Tubular adenoma 3 yr follow up recommended Hepatitis C antibody test positive 08/19/2022 Assessment & Plan (08/19/2022 2:45 PM EDT): Last Hep C Viral Load 11/01/2021 Undetectable Chronic left shoulder pain 08/19/2022 Assessment & Plan (08/19/2022 2:48 PM EDT): Pt with c/o persistent left shoulder pain. 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 Pt decided to continue without surgery for now. 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 Recommend correlation with biopsy results and continued surveillance. Previous PET CT did not show much uptake but given its appereance radiologist recommended CT guided biopsy. This was done 06/19/2021: Pathology showed benign bronchoalveolar tissue with stromal fibroelastic changes, no malignancy identified. Car Hostler mentioned in his note that biopsies sometimes are not 100% accurate so he recommended to repeat a Chest CT in [address] 05/06/2024 showed: No significant interval change in nodularity along the inferior margin of the right apical bullous disease/scarring. Continued imaging surveillance is clinically indicated. Assessment & Plan (02/04/2024 10:44 AM EDT): Pt here for a f/u Pt follows with Dr Shipman Car Hostler , last seen 06/2023 CT of chest 05/18/2023 showed: Stable irregular parenchymal nodule along the inferior margin of the right apical bullous disease. Recommend correlation with biopsy results and continued surveillance. Previous PET CT did not show much uptake but given its appereance radiologist recommended CT guided biopsy. This was done 06/19/2021: Pathology showed benign bronchoalveolar tissue with stromal fibroelastic changes, no malignancy identified. Car Hostler mentioned in his note that biopsies sometimes are not 100% accurate so he recommended to repeat a Chest CT in 1 year Assessment & Plan (07/21/2023 11:34 AM EST): Pt here for a f/u Pt follows with Dr Shipman Car Hostler , last seen 06/2023 CT of chest 05/18/2023 showed: Stable irregular parenchymal nodule along the inferior margin of the right apical bullous disease. Recommend correlation with biopsy results and continued surveillance. Previous PET CT did not show much uptake but given its appereance radiologist recommended CT guided biopsy. This was done 06/19/2021: Pathology showed benign bronchoalveolar tissue with stromal fibroelastic changes, no malignancy identified. Car Hostler mentioned in his note that biopsies sometimes are not 100% accurate so he recommended to repeat a Chest CT in 1 year Assessment & Plan (08/19/2022 2:30 PM EDT): Pt here for a f/u Pt follows with Dr shipman Car Hostler , last seen 07/2022 CT of chest 04/11/2021 showed: Paraseptal and centrilobular emphysema. There is a cystic change at the right lung apex that is stable. Immediately inferior to this is an increasing irregularly-shaped or spiculated density or nodule. Neoplastic process cannot be excluded and either PET CT scan or imaging follow-up is\was recommended. PET CT did not show much uptake but given its appereance radiologist recommended CT guided biopsy. This was done 06/19/2021: Pathology showed benign bronchoalveolar tissue with stromal fibroelastic changes, no malignancy identified. Car Hostler mentioned in his note that biopsies sometimes are not 100% accurate so he recommended to repeat a Chest CT in 1 year Benign esophageal stricture 09/14/2014 Assessment & Plan (08/19/2022 2:48 PM EDT): Pt is here for a f/u. currently feeling well. Pt was Dx with eosinophilic esophagitis at a Hospital in [facility]. He is now under the care of Dr. Sarah Hutchison last seen 08/28/2014 . wok up included an EGD, was diagnosed with an esophageal stricture consistent with Schatzki's ring, small hiatal hernia and superficial hemorrhagic gastritis. Pathology shows active chronic gastritis and tested positive for H. Pillory. Pt was treated with Prilosec, Biaxin and Flagyl by Dr. Hutchison Alopecia totalis 06/13/2013 Benign prostatic hyperplasia 02/17/2012 Assessment & Plan (08/02/2024 1:59 PM EST): Under the care of Urologist. On 09/06/2018 pt had an elevated PSA again although same range as previous s/p prostate biopsy 10/24/2016 Negative s/p laser procedure for BPH Last seen 04/27/2024 Assessment & Plan (07/21/2023 11:31 AM EST): Under the care of Urologist.r On 09/06/2018 pt had an elevated PSA again although same range as previous s/p prostate biopsy 10/24/2016 Negative s/p laser procedure for BPH Last seen 08/2022 Assessment & Plan (08/19/2022 2:49 PM EDT): Under the care of Urologist.records On 09/06/2018 pt had an elevated PSA again although same range as previous s/p prostate biopsy 10/24/2016 Negative s/p laser procedure for BPH Erectile dysfunction 02/17/2012 Impaired glucose tolerance 02/17/2012 Assessment & Plan (08/02/2024 2:00 PM EST): Last FBS 77 08/21/2023 Pt counseled about a low carbohydrate low sugar diet, he is exercising regularly Assessment & Plan (08/19/2022 2:49 PM EDT): Last FBS 103 10/2021 Pt counseled about a low carbohydrate low sugar diet, he is exercising regularly Mixed hyperlipidemia 02/17/2012 Assessment & Plan (08/02/2024 2:01 PM EST): Pt here for a f/u Patient with elevated lipids. Most recent lipid profile from: Lab Results Component Value Date TRIG 182 (H) 08/21/2023 TRIG 131 08/19/2022 CHOL 185 08/21/2023 LDLCHOLCAL 94 08/21/2023 HDL 55 08/21/2023 Currently managed with Diet alone. Lipids on target. Will repeat Lipid profile advised to try to adhere to a low cholesterol diet, counseled and educated about diet and exercise Assessment & Plan (02/04/2024 10:45 AM EDT): Pt here for a f/u Patient with elevated lipids. Most recent lipid profile from: Lab Results Component Value Date TRIG 182 (H) 08/21/2023 TRIG 131 08/19/2022 CHOL 185 08/21/2023 LDLCHOLCAL 94 08/21/2023 HDL 55 08/21/2023 Currently managed with Diet alone. Lipids on target. Will repeat Lipid profile advised to try to adhere to a low cholesterol diet, counseled and educated about diet and exercise Assessment & Plan (07/21/2023 11:35 AM EST): Pt here for a f/u Patient with elevated lipids. Most recent lipid profile from: 08/19/2022 shows Component Ref Range & Units 11 mo ago 1 yr ago 2 yr ago Cholesterol, Total <200 mg/dL 200 High 181 196 HDL Cholesterol > OR = 40 mg/dL 56 64 61 Triglycerides <150 mg/dL 131 86 94 LDL Cholesterol mg/dL (calc) 119 High 99 CM 115 High CM Comment: Reference range: <100 Desirable range <100 mg/dL for primary prevention; <70 mg/dL for patients with CHD or diabetic patients with > or = 2 CHD risk factors. LDL-C is now calculated using the Davon-Asencio calculation, which is a validated novel method providing better accuracy than the Friedewald equation in the estimation of LDL-C. Davon SS et al. WALTER. 2013;310(19): 3482-4848 (http://education.Datumate/faq/FDK858) Chol/HDLC Ratio <5.0 (calc) 3.6 2.8 3.2 Non-HDL Cholesterol <130 mg/dL (calc) 144 High 117 CM 135 High CM Currently managed with Diet alone. Lipids on target. Will repeat Lipid profile advised to try to adhere to a low cholesterol diet, counseled and educated about diet and exercise Assessment & Plan (08/19/2022 2:26 PM EDT): Pt here for a f/u Patient with elevated lipids. Most recent lipid profile from: 11/01/2021 shows a total cholesterol of: 181 triglycerides of: 86 HDL of: 64 and LDL of: 99 Currently managed with Diet alone. Lipids on target. Will repeat Lipid profile advised to try to adhere to a low cholesterol diet, counseled and educated about diet and exercise Encounters Date Type Department Care Team Description 08/02/2024 2:00 PM EST Office Visit [address] [address] William Daniel MD Benign prostatic hyperplasia with urinary frequency (Primary Dx); Impaired glucose tolerance; Tinnitus of both ears; Mixed hyperlipidemia; Centriacinar emphysema (CMS/HCC); Preventative health care 08/02/2024 Travel 07/27/2024 Travel 07/26/2024 Patient Outreach [address] [address] William Daniel MD Pre-visit Planning (SDOH Screening negative and Tobacco screening negative) 07/15/[address] [address] William Daniel MD Chart Prep from Last 3 Months Immunizations Name Administration Dates Next Due Influenza High-dose Quadrivalent Preservative Fr ee 03/10/2023 Influenza Injectable Quadriv alant Preservative Free IIV4 MDCK 03/11/2018 Influenza injectable quadrivalent preservative f ree 04/01/2021,03/07/2016 Influenza, High Dose Seasonal, Preservative Free 02/01/2019 Influenza, Split (incl. purified surface antigen ) 02/17/2012 Influenza, trivalent, adjuvanted 02/27/2024 Pneumococcal Conjugate PCV 13 10/08/2021 Pneumococcal Polysaccharide PPSV23 06/13/2013 TD (adult), 2 Lf tetanus tox oid, preservative free, adsorbed 02/04/2024,12/13/2004 Tdap 06/13/2013 Zoster, Recombinant 02/27/2024 Zoster, live 06/13/2014 Social History Tobacco Use Types Packs/Day Years Used Date Smoking Tobacco: Former Cigarettes Q uit: 08/02/2001 Passive Smoke Exposure: Past Smokeless Tobacco: Never Tobacco Cessation:Counseling Given: Not Answered Depression Answer Date Recorded Patient Health Questionnaire-9 Score 2 02/04/2024 Patient Health Questionnaire-9 Score 2 02/04/2024 Last PHQ-9: Questionnaire Data Not on file 0 02/04/2024 Housing Stability Answer Date Recorded What is your housing situation today? I have y[employer]enia fish 01/19/[address] you li ve. Do you have problems with any of the following? None of the above 01/19/2024 Food Insecurity Answer Date Recorded Within the past 12 months, y ou worried that your food would run out before you got money to buy more: Never True 01/19/2024 Within the past 12 months,th e food you bought just didn't last and you didn't have enough money to get more: Never True Transportation Answer Date Recorded In the past 12 months, has l ack of transportation kept you from medical appts, meetings, work or from getting things needed for daily living? No 01/19/2024 Utilities Answer Date Recorded In the past 12 months, has t he electric, gas, oil or water company threatened to shut off services in your home? No 01/19/2024 Depression Answer Date Recorded Patient Health Questionnaire-2 Score 0 02/04/2024 Internet Access Answer Date Recorded Internet Access Q1 Yes 02/01/2024 Internet Access Q2 Not on file 02/01/2024 Sex and Gender Information Value Date Recorded Sex Assigned at Male 03/31/2022 10:18 AM EDT Legal Sex Male 10:18 AM EDT Gender Identity Male 03/31/2022 10:18 AM EDT Sexual Orientation Straight 03/31/2022 10 :18 AM EDT Last Filed Vital Signs Vital Sign Reading Time Taken Comments Blood Pressure 120/72 08/02/2024 1:44 PM EST Pulse 64 08/02/2024 1:44 PM EST Temperature 36.2 ??C (97.1 ??F) 08/02/2024 1:44 PM ES T Respiratory Rate 20 08/02/2024 1:44 PM EST Oxygen Saturation 97% 08/02/2024 1:44 PM EST Inhaled Oxygen Concentration - - Weight 68.7 kg (151 lb 6.4 oz) 08/02/2024 1:44 P M EST Height 170.2 cm (5' 7 ) 08/02/2024 1:44 PM EST Body Mass Index 23.71 08/02/2024 1:44 PM EST Plan of Treatment Health Maintenance Due Date Last Done Comments CT Colonography 1953 FIT DNA/Cologuard 1953 FIT 1955 FOBT 1955 Sigmoidoscopy 1953 RSV Patients and Patients Aged 60 years or older (1 - Risk 60-74 years 1-dose series) 2013 Dental X-Ray: Full Mouth 10/28/2023 10/26/2020 Dental Oral Exam 01/12/2024 07/13/2023, 08/18/2022 Dental Prophylaxis 01/12/2024 07/13/2023, 08/18/2022 Zoster Vaccines (3 of 3) 04/23/2024 02/27/2024, 06/01 Dental X-Ray: Bitewings 07/14/2024 07/13/2023, 08/18 Colonoscopy 11/11/2024 11/11/2021 Colorectal Cancer Screening 11/11/2024 Depression Screening 02/03/2025 02/04/2024, 02/04/20 24 SDOH Screening 07/26/2025 07/26/2024 Alcohol/Substance Use Screening 08/02/2025 08/02/2024 Tobacco Screening 08/02/2025 08/02/2024 Pneumococcal Vaccine: 50+ Years (3 of 3 - PCV20 or PCV21) 10/08/2026 10/08/2021, 06/13/2013 Lipid Panel 08/20/2028 08/21/2023, 07/31, 11/01/2021, Additional history exists DTaP/Tdap/Td Vaccines (3 - Td or Tdap) 02/03/2034 02/04/2024, 06/13/2013, 12/13/2004 Hepatitis C Screening Completed 11/01/2021 COVID-19 Vaccine Completed 02/27/2024, 03/2023, 03/07/2022, Additional history exists Influenza Vaccine Completed 02/27/2024, , 04/01/2021, Additional history exists HIB Vaccines Aged Out No longer eligi ble based on patient's age to complete this topic HPV Vaccines Aged Out No longer eligi ble based on patient's age to complete this topic Hepatitis A Vaccines Aged Out No long er eligible based on patient's age to complete this topic Hepatitis B Vaccines Aged Out No long er eligible based on patient's age to complete this topic IPV Vaccines Aged Out No longer eligi ble based on patient's age to complete this topic Meningococcal Vaccine Aged Out No reji brooke eligible based on patient's age to complete this topic RSV under 20 months Aged Out No longe r eligible based on patient's age to complete this topic Rotavirus Vaccines Aged Out No longer eligible based on patient's age to complete this topic Procedures Procedure Name Priority Date/Time Associated Diagnosis Comments LIPID PANEL WITH REFLEX TO DIRECT LDL Routine 08/21/2023 9:50 AM EDT Mixed hyperlipidemia PROPHYLAXIS - ADULT Routine 07/13/2023 1 :00 PM EST Dental calculus Periodontal disease BITEWINGS - 4 RADIOGRAPHIC IMAGES Routine 07/13/2023 1:00 PM EST Dental calculus Periodontal disease Missing teeth, acquired PERIODIC ORAL EVALUATION - ESTABLISHED PATIENT Routine 07/13/2023 1:00 PM EST HM COLONOSCOPY Routine 11/11/2021 ZZZ HISTORICAL HEPATITIS C AB W/REFL TO HCV RNA, QN, PCR Routine 11/01/2021 8:36 AM EDT from Last 3 Months or Most Recently Relevant to Health Maintenance Results * (ABNORMAL) Lipid Panel with Reflex to Direct LDL (08/21/2023 9:50 AM EDT) Triglycerides 182(H) <150 mg/dL [facility] Comment:Desirable Triglyceri de: less than 150 mg/dLBorderline High Triglyceride 150-199 mg/dLHigh Triglyceride: 200-499 mg/dLVery High Triglyceride: greater than or equal to 5OO mg/dL Cholesterol 185 <200 mg/dL [facility] Comment:Desirable Cholestero l: less than 200 mg/dLBorderline High Cholesterol: 200-239 mg/dLHigh Cholesterol: greater than 239 mg/dL LDL Cholesterol Calculated 94 <100 mg/dL [facility] Comment:Desirable LDL: less than 100 mg/dLNear Optimal/Above Optimal LDL: 110- 129 mg/dLBorderline High LDL: 130-159 mg/dLHigh LDL: 160-189 mg/dLVery High LDL: greater than or equal to 190 mg/dL HDL Cholesterol 55 >40 mg/dL [facility] Comment:Desirable HDL: great er than 40 mg/dL Note: This HDL assay may give artificially low results in patients with liver disease. Blood 08/21/2023 9:50 AM EDT 08/21/2023 11:14 AM EDT us William Sanchez MD LAB BLOOD ORDERABLES Final Result [facility] [address] [place] [address] [phone] * Colonoscopy (11/11/2021) Colonoscopy Normal Normal 11/11/2021 Narrative [place] - 11/11/2021 11:05 AM EDT Recommended 3 year follow up ( see scanned notes) us Historical Provider MD HEALTH MAINTENANCE Final Result * (ABNORMAL) HEPATITIS C AB W/REFL TO HCV RNA, QN, PCR (11/01/2021 8:36 AM EDT) HEPATITIS C ANTIBODY REACTIVE( A) NON-REACT LIZ [facility] INDEX >11.00(H) <1.00 [facility] Comment: ?? Based on this result, the sample will be tested for HCV RNA by a Nucleic Acid Amplification Test (NAAT) to determine if the patient has a current active infection. ?? 11/01/2021 8:36 AM EDT William Sanchez MD HISTORICAL/NON ORDERA BLE LABS Final Result [facility] [address] from Last 3 Months or Most Recently Relevant to Health Maintenance Insurance [facility] [place] [address] [facility] Care Teams Firewall Administrator Relationship Specialty Start Date End Date William Daniel MD [address] [place] [address] [place] [id number] PCP - General Internal Medicine 03/07/21
[2024-09-14 11:43] LABS: Alanine Aminotransferase 22 U/L (0-40); Albumin Level 4.6 g/dL (3.5-5.0); Alkaline Phosphatase 69 U/L (39-117); Anion Gap 11 (12-20); Aspartate Amino Transferase 44 U/L (5-37); Bilirubin Total 0.8 mg/dL (0.0-1.0); Blood Urea Nitrogen 12 mg/dL (9-16); Calcium 9.6 mg/dL (8.4-10.2); Carbon Dioxide 30 mmol/L (22-29); Chloride 105 mmol/L (96-108); Cholesterol 201 mg/dL (<200); Estimated Glomerular Filt Rate > 60; Glucose Random 111 mg/dL (60-115); HDL Cholesterol 54 mg/dL (>40); LDL Cholesterol Calculated 122 mg/dL (<100); Potassium 4.8 mmol/L (3.3-5.1); Sodium 141 mmol/L (135-145); Total Protein 7.8 g/dL (6.5-8.0); Triglycerides 129 mg/dL (<150)
== END 2024-09-14 08:39 | disposition home or self-care (01) ==
LOC: HO.HHCL 08:38
PROVIDERS: Visit Provider Internal Medicine
DX: E78.2 Mixed hyperlipidemia (principal)
CPT/HCPCS: 36415; 80053; 80061

== ENCOUNTER 2024-09-30 09:51 | Outpatient (REF) | payer MEDICARE, SELFPAY ==
--- OUTSIDE RECORDS SUMMARY | 2024-09-30 10:37 | XMS_ITS | Encounter Summary ---
Author Organization [employer] Address [address] [place] [address] [address] [place] [address] Care Team Providers Care Wardrobe Attendant Name Role Phone William Daniel MD Primary Care Provide r Encounter Details Date Type Department Care Team ([facility] st Contact Info) Description 10/02/2022 Abstract [facility]IC[facility] [address] [place], [place] [phone] William Daniel MD [address] [place] [address] Social History Tobacco Use Types Packs/Day Years [...] documented as of this encounter Care Teams Wardrobe Attendant Relationship Specialty Start Date End Date William Daniel MD [address] [place] [phone] PCP - General Internal Medicine 03/07/21 documented as of this encounter
--- OUTSIDE RECORDS SUMMARY | 2024-09-30 10:37 | XMS_ITS | Clinical Summary ---
Author Organization [facility] Address [address] [place] [address] Care Team Providers Care Crew Team Member Name Role Phone William Owen Primary Care [...] Zoster Vaccines (2 of 3) 08/08/2014 06/13/2014 DTaP,Tdap,and Td Vaccines (2 - Td or [...] patient's age to complete [place] [address] [facility] Care Teams Crew Team Member Relationship Specialty Start Date End Date William Owen [address] [place] [phone] PCP - General Internal Medicine 07/28/23
--- OUTSIDE RECORDS SUMMARY | 2024-09-30 10:37 | XMS_ITS | Encounter Summary ---
Author Organization [employer] Address [address] [place] [address] Care Team Providers Care Dyslexia Teacher Name Role Phone William Daniel MD Primary Care Provide r Reason for Visit * Reason Comments Med Refill Encounter Details Date Type Department Care Team (Late st Contact Info) Description 10/10/2023 Refill [facility] [address] [place], [place] [phone] William Daniel MD [address] [place], [place] [phone] Onychomycosis of great toe Social History Tobacco [...] documented as of this encounter Care Teams Dyslexia Teacher Relationship Specialty Start Date End Date William Daniel MD [address] [place] [address] PCP - General Internal Medicine 03/07/21 documented as of this encounter
--- OUTSIDE RECORDS SUMMARY | 2024-09-30 10:37 | XMS_ITS | Referral Summary ---
Author Organization [facility] Address [address] [place] [address] Care Team Providers Care Installation Supervisor Name Role Phone William Owen Primary Care [...] [id number] [facility] Care Teams Installation Supervisor Relationship Specialty Start Date End Date William Owen [address] [place] [phone] PCP - General Internal Medicine 07/28/23
--- OUTSIDE RECORDS SUMMARY | 2024-09-30 10:37 | XMS_ITS | Encounter Summary ---
Author Organization [employer] Address [address] [place] [address] [address] [place] [address] Care Team Providers Care Chef De Cuisine Name Role Phone William Daniel MD Primary [...] on filedocumented in this encounter Care Teams Chef De Cuisine Relationship Specialty Start Date End Date William Daniel MD [address] [place] [phone] PCP - General Internal Medicine 03/07/21 documented as of this encounter
--- OUTSIDE RECORDS SUMMARY | 2024-09-30 10:37 | XMS_ITS | Encounter Summary ---
Author Organization [facility] Address [address] [place] [address] [address] [place] [address] Care Team Providers Care Brazer Resistance Name Role Phone William Daniel MD Primary Care Provide r Encounter Details Date Type Department Care Team ([facility] st Contact Info) Description 06/17/2022 Telephone [facility] MEDICINE [address] [place], [place] [phone] William Daniel MD [address] [place] [address] Social History Tobacco Use Types Packs/Day Years [...] on filedocumented in this encounter Care Teams Brazer Resistance Relationship Specialty Start Date End Date William Daniel MD [address] [place], [place] [phone] PCP - General Internal Medicine 03/07/21 documented as of this encounter
--- OUTSIDE RECORDS SUMMARY | 2024-09-30 10:37 | XMS_ITS | Encounter Summary ---
Author Organization [employer] Address [address] [facility] [address]t [place] [address] Care Team Providers Care Cloth Printing Inspector Name Role Phone William Daniel MD Primary Care Provide r Reason for Visit * Reason Onset Date Comments Appointment Request 06/05/2023 Encounter Details Date Type Department Care Team ([facility] Contact Info) Description 06/05/2023 Telephone [facility]INE [address] [place] [address] William Daniel MD [address] [place], [place] [phone] Appointment Request Social History Tobacco Use Types [...] documented as of this encounter Care Teams Cloth Printing Inspector Relationship Specialty Start Date End Date William Daniel MD [address] [place] [phone] PCP - General Internal Medicine 03/07/21 documented as of this encounter
--- OUTSIDE RECORDS SUMMARY | 2024-09-30 10:37 | XMS_ITS | Clinical Summary ---
Author Organization [employer] Address [address] [place] [address] 7[address] [place] [address] Care Team Providers Care Reaming Machine Operator Name Role Phone William Daniel MD Primary [...] a f/u Pt follows with Dr Shipman Air Chief Marshal , last seen 06/2023 CT of chest [...] with stromal fibroelastic changes, no malignancy identified. Air Chief Marshal mentioned in his note that biopsies sometimes [...] a f/u Pt follows with Dr Shipman Air Chief Marshal , last seen 06/2023 CT of chest [...] with stromal fibroelastic changes, no malignancy identified. Air Chief Marshal mentioned in his note that biopsies sometimes are not 100% accurate so he recommended to repeat a Chest CT in 1 year Assessment & Plan (07/21/2023 11:34 AM EST): Pt here for a f/u Pt follows with Dr Shipman Air Chief Marshal , last seen 06/2023 CT of chest [...] with stromal fibroelastic changes, no malignancy identified. Air Chief Marshal mentioned in his note that biopsies sometimes are not 100% accurate so he recommended to repeat a Chest CT in 1 year Assessment & Plan (08/19/2022 2:30 PM EDT): Pt here for a f/u Pt follows with Dr shipman Air Chief Marshal , last seen 07/2022 CT of chest [...] with stromal fibroelastic changes, no malignancy identified. Air Chief Marshal mentioned in his note that biopsies sometimes are not 100% accurate so he recommended to repeat a Chest CT in 1 year Benign esophageal stricture 09/14/2014 Assessment & Plan (08/19/2022 2:48 PM EDT): Pt is here for a f/u. currently feeling well. Pt was Dx with eosinophilic esophagitis at a Hospital in [facility]. He is now under the [...] LDL-C. Davon SS et al. WALTER. 2013;310(19): 6284-8136 (http://education.[employer]/faq/ADT551) Chol/HDLC Ratio <5.0 (calc) 3.6 2.8 3.2 [...] Description 08/02/2024 2:00 PM EST Office Visit [address] [address] William Daniel MD Benign prostatic hyperplasia with urinary frequency (Primary Dx); Impaired glucose tolerance; Tinnitus of both ears; Mixed hyperlipidemia; Centriacinar emphysema (CMS/HCC); Preventative health care 08/02/2024 Travel 07/27/2024 Travel 07/26/2024 Patient Outreach [address] [address] William Daniel MD Pre-visit Planning (SDOH Screening negative and Tobacco screening negative) 07/15/[address] [address] William Daniel MD Chart Prep from Last [...] or PCV21) 10/08/2026 10/08/2021, 06/13/2013 Lipid Panel 09/14/2029 09/14/2024, 07/31, 08/19/2022, Additional history exists DTaP/Tdap/Td Vaccines (3 - [...] Name Priority Date/Time Associated Diagnosis Comments LIPID PANEL, STANDARD Routine 09/14/2024 8:40 AM EDT Mixed hyperlipidemia COMPREHENSIVE METABOLIC PANEL Routine 09/14/2024 8:40 AM EDT Mixed hyperlipidemia PROPHYLAXIS - ADULT Routine 07/13/2023 1 :00 PM EST Dental calculus Periodontal disease BITEWINGS - 4 RADIOGRAPHIC IMAGES Routine 07/13/2023 1:00 PM EST Dental calculus Periodontal disease Missing teeth, acquired PERIODIC ORAL EVALUATION - ESTABLISHED PATIENT Routine 07/13/2023 1:00 PM EST HM COLONOSCOPY Routine 11/11/2021 [place] HISTORICAL HEPATITIS C AB W/REFL TO HCV RNA, QN, PCR Routine 11/01/2021 8:36 AM EDT from Last 3 Months or Most Recently Relevant to Health Maintenance Results * (ABNORMAL) Lipid Panel, Standard (09/14/2024 8:40 AM EDT) Triglycerides 129 <150 mg/dL [facility] Comment:Desirable Triglyceri de: less than 150 mg/dLBorderline High Triglyceride 150-199 mg/dLHigh Triglyceride: 200-499 mg/dLVery High Triglyceride: greater than or equal to 5OO mg/dL Cholesterol 201(H) <200 mg/dL [facility] Comment:Desirable Cholestero l: less than 200 mg/dLBorderline High Cholesterol: 200-239 mg/dLHigh Cholesterol: greater than 239 mg/dL LDL Cholesterol Calculated 122(H) <100 mg/dL [facility] Comment:Desirable LDL: less than 100 mg/dLNear Optimal/Above Optimal LDL: 110- 129 mg/dLBorderline High LDL: 130-159 mg/dLHigh LDL: 160-189 mg/dLVery High LDL: greater than or equal to 190 mg/dL HDL Cholesterol 54 >40 mg/dL [facility] Comment:Desirable HDL: great er than 40 mg/dL Note: This HDL assay may give artificially low results in patients with liver disease. Blood Venous blood specimen / Unknown 09/14/2024 8:40 AM EDT 09/14/2024 11:14 AM EDT us William Sanchez MD LAB BLOOD ORDERABLES Final Result [facility] [address] [place] [phone] * (ABNORMAL) Comprehensive Metabolic Panel (09/14/2024 8:40 AM EDT) Sodium 141 135 - 145 mmol/L [facility] Potassium 4.8 3.3 - 5.1 mmol/L [facility] Chloride 105 96 - 108 mmol/L [facility] Carbon Dioxide 30(H) 22 - 29 mmol/L [facility] Anion Gap 11(L) 12 - 20 [facility] Urea Nitrogen (BUN) 12 9 - 16 mg/dL [facility] Creatinine, Serum 0.96 0.5 - 1.4 mg/dL [facility] Estimated Glomerular Filt Rate >60 [facility] Comment:Chronic Kidney Disea se: Estimated GFR < 60 mL/min/1.09c8Lndpqm Kidney Disease: Estimated GFR < 15 mL/min/1.73m2 Glucose 111 60 - 115 mg/dL [facility] Calcium 9.6 8.4 - 10.2 mg/dL [facility] Bilirubin, Total 0.8 0.0 - 1.0 mg/dL [facility] Aspartate Amino Transferase 44(H) 5 - 37 U/L [facility] Alanine Aminotransferase 22 0 - 40 U/L [facility] Total Protein 7.8 6.5 - 8.0 g/dL [facility] Albumin Level 4.6 3.5 - 5.0 g/dL [facility] Alkaline Phosphatase 69 39 - 117 U/L [facility] Blood Venous blood specimen / Unknown 09/14/2024 8:40 AM EDT 09/14/2024 11:14 AM EDT us William Sanchez MD LAB BLOOD ORDERABLES Final Result [facility] [address] [place], [place] [phone] * Hm Colonoscopy (11/11/2021) Colonoscopy Normal Normal 11/11/2021 [place] - 11/11/2021 11:05 AM EDT Recommended 3 year follow up ( see scanned notes) Historical Provider HEALTH MAINTENANCE Final Result * (ABNORMAL) HEPATITIS C AB W/REFL TO HCV RNA, QN, PCR (11/01/2021 8:36 AM EDT) HEPATITIS C ANTIBODY REACTIVE( A) NON-REACT LIZ [facility] INDEX >11.00(H) <1.00 [facility] Comment: ?? Based on this result, the sample will be tested for HCV RNA by a Nucleic Acid Amplification Test (NAAT) to determine if the patient has a current active infection. ?? 11/01/2021 8:36 AM EDT William Sanchez MD HISTORICAL/NON ORDERA BLE LABS Final Result [facility] Anywhere [address] from Last 3 Months or Most Recently Relevant to Health Maintenance Insurance [facility] [place] [address] [facility] * Guarantor: David Goodwin Account Type Relation to Patient Date of Phone Billing Address Personal/Family Self Spring Churchnanette Gallegos [place] Care Teams Reaming Machine Operator Relationship Specialty Start Date End Date William Daniel MD [address] [place] [address] [place] [address] PCP - General Internal Medicine 03/07/21
--- OUTSIDE RECORDS SUMMARY | 2024-09-30 10:37 | XMS_ITS | Encounter Summary ---
Author Organization [employer] Address [address] [place] [address] [address] [place] [address] Care Team Providers Care Marine Engineering Teacher Name Role Phone William Daniel MD [...] on filedocumented in this encounter Care Teams Marine Engineering Teacher Relationship Specialty Start Date End Date William Daniel MD [address] [place] [id number] PCP - General Internal Medicine 03/07/21 documented as of this encounter
== END 2024-09-30 09:52 | disposition home or self-care (01) ==
LOC: HO.LAB 09:51
PROVIDERS: PCP Internal Medicine; Visit Provider Urology
DX: R97.20 Elevated prostate specific antigen [PSA] (principal); Z12.5 Encounter for screening for malignant neoplasm of prostate
CPT/HCPCS: 36415; 84153

== ENCOUNTER 2024-10-25 15:25 | Outpatient (AMB) | payer MEDICARE, SELFPAY ==
--- NOTE | 2024-10-25 15:25 | A.OFFVIS_ITS ---
Intake Visit Reasons: 6M PSA Intake Note: Patient is present via telehealth for 6 month Follow Up/PSA Urology Medication: Finasteride, Sildenafil Antibiotic Allergies:Penicillins Blood Thinners: None 09/26 Total PSA 2.27 Campaign Associate Required: No Accompanied by: Self / Same As Patient Allergies Penicillins Allergy (Intermediate, Verified 10/25/24 15:27) SWELLING HPI Comments Details: David is a pleasant male. He is a patient of Dr. Owen. He is seen for the following urologic conditions - lower urinary tract symptoms - elevated PSA - erectile dysfunction Telemedicine Evaluation 15 min Consultation [employer] Arnie Video Six-month follow-up He has been on finasteride every other day Consistent PSA response 1.9 Still good response to on demand sildenafil Twelve month follow-up Lower urinary tract symptoms Longstanding Initial symptoms Nocturia 3 times per night, Mild weakness of stream Prior therapy Flomax 0.8 mg and finasteride Large BRYCE on exam Prostate intervention GreenLight laser 09/20 - normalization of voiding parameters Elevated PSA Known chronic inflamed prostate PSA historically between 5 and 6.8 PSA 04/19 5.0, 07/23 3, 01/20 2.1, 09/22 5.5. 04/24 2.1, 10/23 1.9 Erectile dysfunction Good response to 100 mg sildenafil Prescription through [facility] Medical History BPH (benign prostatic hyperplasia) Elevated cholesterol Hepatitis C MINGO (obstructive sleep apnea) COPD (chronic obstructive pulmonary disease) Pneumonitis Pulmonary nodule Surgical History History of prostate surgery Hx of bilateral inguinal hernia repair Hx of right inguinal hernia repair History of esophagogastroduodenoscopy (EGD) H/O colonoscopy Hx of circumcision History of lung biopsy Social History Patient Tobacco Use Status: Never used Tobacco Substance Use Type: Marijuana Review of Systems Const All systems reviewed & are unremarkable except as noted in HPI and below Reports no additional complaints Resp Reports no additional complaints GI Reports no additional complaints Reports as per HPI Musc Reports no additional complaints Physical Exam Telemedicine evaluation Appropriate responses Regular breathing rate and rhythm HEENT Head: Yes normal to inspection Ears: hearing grossly normal bilaterally Eyes General: appearance normal, both eyes and all related structures Neck Neck: Yes normal visual inspection Chest Chest palpation & inspection: normal inspection of the chest Resp Effort & Inspection: normal respiratory effort and able to speak in complete sentences Telehealth Telehealth Telehealth Platform: [employer]ig[employer] Location of provider rendering services: practice address Location of patient: address on file Patient Identification confirmed using: Name, : Yes Telehealth method: video Patient verbally consented to treatment: Yes Patient verbally consented to billing insurance company: Yes Patient informed of any privacy concerns related to visit: Yes Minutes spent on Phone/Video with Pt.: 15 Assessment & Plan Assessment & Plan (1) Elevated PSA: Code(s): R97.20 - Elevated prostate specific antigen [PSA] Category: Medical (2) BPH with obstruction/lower urinary tract symptoms: Code(s): N40.1 - Benign prostatic hyperplasia with lower urinary tract symptoms; N13.8 - Other obstructive and reflux uropathy Category: Medical (3) Erectile dysfunction: Code(s): N52.9 - Male erectile dysfunction, unspecified Category: Medical Plan Finasteride 3 times a week PSA follow-up 12 months Orders: Orders Prostate Specific Antigen 12 Months N13.8 - Other obstructive and reflux uropathy, N40.1 - Benign prostatic hyperplasia with lower urinary tract symptoms Medications: Refilled finasteride 5 mg PO DAILY 90 tabs 1RF 90 days N13.8 - Other obstructive and reflux uropathy, N40.1 - Benign prostatic hyperplasia with lower urinary tract symptoms, R33.9 - Retention of urine, unspecified Patient Instructions: This note is constructed using voice recognition software. While every effort has been made to ensure accuracy supervisor reinforced steel placing errors may have been included. Imaging studies, laboratory and physical exam results were discussed and reviewed in detail. No major barriers to patient understanding were identified. An opportunity to ask questions regarding the treatment plan was provided. All questions were answered. The patient expressed understanding and agreement with the above treatment plan. The patient is aware they should contact our office by phone for worsening of their current condition or the appearance of new urologic symptoms. Compliance is encouraged with any medications and followup testing that is ordered. It is a privilege to participate in the urologic care of your patient. If you have any questions or concerns regarding treatment for the above conditions, or other urologic issues, please do not hesitate to contact me. The office telephone contact is [phone]. Sincerely, Dr Anthony Lorenz MD, [facility] - Urology Compassionate Specialist Care for the Genitourinary System Coding Level of Care Code Tele Est Pt Level 3 (82495) Complex EM visit Add On G2211 Diagnoses Elevated PSA R97.20 BPH with obstruction/lower urinary tract symptoms N40.1; N13.8 Erectile dysfunction N52.9
--- OUTSIDE RECORDS SUMMARY | 2024-10-25 15:28 | XMS_ITS | Encounter Summary ---
Author Organization [employer] Address [address] [place] [address] [address] [place] [address] Care Team Providers Care Kettle Cook Name Role Phone William Daneil MD Primary Care Provide r Encounter Details [...] on filedocumented in this encounter Care Teams Kettle Cook Relationship Specialty Start Date End Date William Daniel MD [address] [place] [id number] PCP - General Internal Medicine 03/07/21 documented as of this encounter
== END 2024-10-25 16:12 | disposition home or self-care (01) ==
LOC: HO.HUSH 15:25
PROVIDERS: PCP Internal Medicine; Visit Provider Urology
DX: R97.20 Elevated prostate specific antigen [PSA] (principal); N40.1 Benign prostatic hyperplasia with lower urinary tract symptoms; N13.8 Other obstructive and reflux uropathy; N52.9 Male erectile dysfunction, unspecified
CPT/HCPCS: 99213; G2211

== ENCOUNTER → 2024-10-25 15:25 | Outpatient (BNVA) | payer MEDICARE, SELFPAY | PROVIDERS: PCP Internal Medicine; Visit Provider Urology | DX: Z13.89 Encounter for screening for other disorder (principal) ==

== ENCOUNTER 2024-12-14 12:44 | Outpatient (AMB) | payer MEDICARE, SELFPAY ==
[2024-12-14 13:01] VITALS: BP 120/68; PULSE 62; O2SAT 97; BMI 22.6
--- NOTE | 2024-12-14 13:01 | A.OFFVIS_ITS ---
Vital Signs 12/14/24 13:01 Height 5 ft 7 in Weight 144 lb BMI 22.6 BP 120/68 Blood Pressure Location Rt brachial Position Sitting Pulse 62 Pulse Source Pulse Oximeter Pulse Oximetry (%) 97 Oxygen Delivery Method Room Air Intake Visit Reasons: Preop/ Colonoscopy 12/19/24 Allergies Penicillins Allergy (Intermediate, Verified 12/14/24 13:04) SWELLING HPI HPI Preop/ Colonoscopy 12/19/24: Details: David is a pleasant 69 year old male, former 25 pack year smoker, quit 20+ years ago with underlying COPD, pulmonary nodule RUL, mild MINGO not on CPAP. He is under the care of Dr. Shipman and presents for preoperative pulmonary evaluation for upcoming colonoscopy scheduled next month. Over the last few months he reports well controlled respiratory medications without the need for respiratory medications, which is has never used. He denies any recent respiratory infections or hospitalizations requiring prednisone/abx. He denies prior need for supplemental oxygen. PFT from 2022 revealed mild to moderate COPD. Patient with h/o pulmonary nodule RUL, underwent PET which did not reveal significant activity and CT guided biopsy in 2021 which was negative for malignancy. Most recent chest CT [address] chest to be performed 05/2025. [facility] Medical History BPH (benign prostatic hyperplasia) Elevated cholesterol Hepatitis C MINGO (obstructive sleep apnea) COPD (chronic obstructive pulmonary disease) Pneumonitis Pulmonary nodule Surgical History History of prostate surgery Hx of bilateral inguinal hernia repair Hx of right inguinal hernia repair History of esophagogastroduodenoscopy (EGD) H/O colonoscopy Hx of circumcision History of lung biopsy Social History (Updated 12/14/24 @ 13:04 by Radha Ceja [facility]) Patient Tobacco Use Status: Former Tobacco user Substance Use Type: Marijuana Review of Systems Const Denies chills, Denies excessive sweating, Denies fever(s), Denies headache(s) and Denies night sweats Eyes Denies dry eyes, Denies irritation and Denies itchy eyes ENT Reports Normal hearing present, Denies headache(s), Denies nasal congestion, Denies nasal discharge, Denies post nasal drip and Denies sore throat Card Denies chest pain, Denies chest pain at rest, Denies chest pain with activity, Denies claudication, Denies leg edema, Denies dyspnea, Denies dyspnea on exertion, Denies orthopnea and Denies paroxysmal nocturnal dyspnea Resp Denies chest congestion, Denies cough, Denies excessive phlegm production, Denies pain on inspiration, Denies pain with cough, Denies dyspnea, Denies dyspnea on exertion, Denies stridor and Denies wheezing Musc Denies myalgias Neuro Reports Normal hearing present and Denies headache(s) Endo Denies excessive sweating Daren/Lymph Denies lymphadenopathy Aller/Immun Denies itchy eyes, Denies seasonal rhinorrhea and Denies wheezing Physical Exam Vital Signs: Last Vital Signs Pulse 62 12/14/24 13:01 BP 120/68 12/14/24 13:01 Pulse Ox 97 12/14/24 13:01 Oxygen Delivery Method Room Air 12/14/24 13:01 BMI result Body Mass Index 22.6 Const General: cooperative, healthy appearing, comfortable, no acute distress, well developed and alert Orientation/consciousness: patient oriented x3 Limitations: no limitations HEENT Head: Yes normal to inspection, Yes normocephalic and Yes atraumatic Ears: hearing grossly normal bilaterally and external ears normal Eyes General: appearance normal, both eyes and all related structures Eyelids: Yes eyelids normal Sclerae: sclerae normal EOM: EOMs intact bilaterally Neck Neck: Yes normal visual inspection and Yes no lymphadenopathy Lymphatic: no lymphadenopathy noted Chest Chest palpation & inspection: normal inspection of the chest Resp Effort & Inspection: normal respiratory effort, able to speak in complete sentences, no audible wheezes, no cough, no stridor, not tachypneic, no tripod positioning and no use of accessory muscles Auscultation: clear to auscultation bilaterally Cardio Jugular venous distension: no JVD Rate: regular rate Rhythm: regular rhythm Skin Other: warm, dry General skin exam: no rashes or lesions noted Neuro General: patient oriented x3 Cranial nerves: Yes Normal hearing present Cognition (Neuro): normal cognition Gait exam (Neuro): Normal gait present Extrem General: Yes normal to inspection, Yes capillary refill normal, Yes no clubbing, cyanosis or edema and Yes no pedal edema Psych Appearance: grossly normal and well kempt Speech and movement: Normal speech and movement present and Clear speech present Affect: normal affect Attitude: cooperative Thought process: Normal thought process present Thought content: Normal thought content present Insight: Good insight present (Psych) Judgement: Good judgement present (Psych) Results Reviewed Results Reviewed: [address] [address] [address] Scan Report Signed Patient: David Goodwin MR#: [id number] : 1955 Acct:[id number] Age/Sex: 69 / M ADM Date: 05/06/24 Loc: HO.CT Attending Dr: Chet Shipman MD Ordering Physician: Chet Shipman MD Date of Service: 05/06/24 Procedure(s): CT chest wo IV con Accession Number(s): [id number] cc: William Owen MD; Chet Shipman MD~ Report Number: [id number]: Total DLP = 156.00 mGy-cm EXAMINATION: CT CHEST WITHOUT CONTRAST CLINICAL INFORMATION: Solitary pulmonary nodule. COMPARISON: May 18, 2023 and May 23, 2022 TECHNIQUE: Multidetector volumetric CT imaging of the chest was done. Axial MIP volume rendering provided. Sagittal and coronal reformatted images were obtained. This CT examination was performed using dose optimization techniques as appropriate, variously including the following: *Automated exposure control *Adjustment of mA and/or kV according to patient size (this includes techniques or standardized protocols for targeted exams where dose is matched to indication/reason for exam; i.e. extremities or head) *Use of iterative reconstruction technique DLP: 156 mGy-cm FINDINGS: LUNGS: Centrilobular emphysema with severe right apical bullous disease and scarring. Irregular nodule along the inferior aspect of the bullous disease in the right upper lobe measures 1.8 x 0.9 cm and is unchanged from May 18, 2023 allowing for technical differences. No new pulmonary nodule. No airspace consolidation. Central airways are patent. MEDIASTINUM: Imaged thyroid gland is unremarkable. No bulky mediastinal or hilar lymphadenopathy. Great vessels are of normal caliber. Heart size is normal. No pericardial effusion. CORONARY ARTERY CALCIFICATION: Mild. PLEURA: There is no pleural effusion. No pleural mass or thickening. AXILLA/CHEST WALL: No axillary lymphadenopathy. Lymphovascular. UPPER ABDOMEN: No adrenal mass. OSSEOUS STRUCTURES: No destructive bone lesions. CT/CT chest wo IV con IMPRESSION: No significant interval change in nodularity along the inferior margin of the right apical bullous disease/scarring. Continued imaging surveillance is clinically indicated. Electronically signed by: Eric Grossman MD 06/29/2024 11:21 AM EST RP Dictated By: Lexi Grossman MD Signed By: <Electronically signed by Lexi Grossman MD in OV> 06/29/24 1121 DD/ 1412 TD/TT: 05/06/24 1430 Aquatic Instructor: Assessment & Plan Assessment & Plan (1) COPD (chronic obstructive pulmonary disease): Code(s): J44.9 - Chronic obstructive pulmonary disease, unspecified Category: Medical Qualifiers: COPD type: chronic bronchitis Chronic bronchitis type: simple Qualified Code(s): J41.0 - Simple chronic bronchitis (2) Pulmonary nodule: Comment: had lung biopsy 06/2021 Code(s): R91.1 - Solitary pulmonary nodule Category: Medical (3) Encounter for preoperative pulmonary examination: Code(s): Z01.811 - Encounter for preprocedural respiratory examination Category: Medical Plan David presents for preoperative pulmonary evaluation for proposed colonoscopy. He denies respiratory symptoms at this time, repiratory exam unremarkable and VSS WNL. He has been doing quite well without the need for respiratory medications over the last few months. He has not required steroids or antibiotics in the last three months. Prior home sleep study revealed borderline MINGO with AHI 5.7 from 2020, trialed dental device which he could not tolerate and not interested in CPAP therapy as he is not symptomatic currently. At this time, he is considered low risk for perioperative pulmonary complications. Consider bronchodilators during the perioperative period. All questions were answered and patient is in agreement of plan. Will follow up for regularly scheduled a ppointment with Dr. Shipman or sooner if needed. Orders: Orders CT chest wo IV con 6 Months R91.1 - Solitary pulmonary nodule Coding Level of Care Code Est Pt Level 4 (30852) Complex EM visit Add On G2211 Diagnoses Simple chronic bronchitis J41.0 COPD type: chronic bronchitis Chronic bronchitis type: simple Pulmonary nodule R91.1 Encounter for preoperative pulmonary examination Z01.811
--- OUTSIDE RECORDS SUMMARY | 2024-12-14 13:38 | XMS_ITS | Referral Summary ---
Author Organization [facility] Address [address] [place] [address] Care Team Providers Care Tool Straightener Name Role Phone William Owen Primary Care [...] of Treatment [id number] [facility] MCR Care Teams Tool Straightener Relationship Specialty Start Date End Date William Owen [address] [place] [id number] PCP - General Internal Medicine 07/28/23
--- OUTSIDE RECORDS SUMMARY | 2024-12-14 13:38 | XMS_ITS | Encounter Summary ---
Author Organization [employer] Address [address] [place] [address] [address] [place] [address] Care Team Providers Care Court Messenger Name Role Phone William Daniel MD Primary Care Provide r Encounter Details Date Type Department Care Team (Latest Contact Info) Description 02/06/2022 Abstract [facility] CONVERSIONS Dental, Provider, DDS Social History Tobacco Use Types Packs/Day Years Used Date Smoking Tobacco: Never Assessed Sex and Gender Information Value Date Recorded Sex Assigned at Male 03/31/2022 10:18 AM EDT Legal Sex Male 10:18 AM EDT Gender Identity Male 03/31/2022 10:18 AM EDT Sexual Orientation Straight 03/31/2022 10 :18 AM EDT documented as of this encounter Plan of Treatment Upcoming Encounters Date Type Department Care Team (Late st Contact Info) Description 02/02/2025 10:30 AM EDT Office Visit [facility] MEDICINE [address] [place] [address] William Daniel MD [address] [place] [address] documented as of this encounter Visit Diagnoses Not on filedocumented in this encounter Care Teams Court Messenger Relationship Specialty Start Date End Date William Daniel MD [address] [place] [address] PCP - General Internal Medicine 03/07/21 documented as of this encounter
== END 2024-12-14 13:19 | disposition home or self-care (01) ==
LOC: HO.HPSW 12:45
PROVIDERS: PCP Internal Medicine; Visit Provider Nurse Practitioner Family
DX: J41.0 Simple chronic bronchitis (principal); R91.1 Solitary pulmonary nodule; Z01.811 Encounter for preprocedural respiratory examination
CPT/HCPCS: 99214; G2211

== ENCOUNTER → 2024-12-14 12:44 | Outpatient (BNVA) | payer MEDICARE, SELFPAY | PROVIDERS: PCP Internal Medicine; Visit Provider Nurse Practitioner Family | DX: Z01.811 Encounter for preprocedural respiratory examination (principal); J41.0 Simple chronic bronchitis; R91.1 Solitary pulmonary nodule | CPT/HCPCS: 99212 ==

== ENCOUNTER 2025-02-17 09:38 | Day surgery (SDC) | payer MEDICARE, SELFPAY ==
--- OUTSIDE RECORDS SUMMARY | 2024-11-29 13:39 | XMS_ITS | Referral Summary ---
Author Organization [facility] Address [address] [place] [address] Care Team Providers Care Digitizer Name Role Phone William Owen Primary Care [...] of Treatment [id number] [facility] MCR Care Teams Digitizer Relationship Specialty Start Date End Date William Owen [address] [place] [id number] PCP - General Internal Medicine 07/28/23
[2025-01-11 13:39] VITALS: BMI 22.6
--- NOTE | 2025-02-15 13:15 | HO.ANESPROP2 ---
Documented by User: Millie Meyer NP 02/15/25 13:16 HPI - Anesthesia Eval Consult details Narrative: 70 yr old male for colonoscopy Optimized by [facility] pulmonology 11/2024 visit COPD: no recent steroids or respiratory illness per 11/2024 pulmonology note MINGO: not on CPAP PMFSH Active Problems Active Problems: All Active Problems Encounter for preoperative pulmonary examination (Acute) BPH with obstruction/lower urinary tract symptoms (Acute) Elevated PSA (Acute) Erectile dysfunction (Acute) Positive colorectal cancer screening using Cologuard test (Acute) Tubular adenoma of colon (Acute) Chronic hepatitis C (Acute) High cholesterol (Acute) Impaired fasting glucose (Acute) Alopecia (Acute) MINGO (obstructive sleep apnea) (Acute) COPD (chronic obstructive pulmonary disease) (Acute) Pneumonitis (Acute) Pulmonary nodule (Acute) Past Medical History Medical History (Updated 12/14/24 @ 13:28 by Olivia Kong NP) BPH (benign prostatic hyperplasia) Elevated cholesterol Hepatitis C MINGO (obstructive sleep apnea) COPD (chronic obstructive pulmonary disease) Pneumonitis Pulmonary nodule Family History Family history of problems with anesthesia: No Surgical History Surgical History (Updated 02/17/25 @ 10:08 by Katie Putnam RN) History of surgery History of prostate surgery Hx of bilateral inguinal hernia repair Hx of right inguinal hernia repair History of esophagogastroduodenoscopy (EGD) H/O colonoscopy Hx of circumcision History of lung biopsy History of Problems with Anesthesia: No Social History Social History (Updated 12/14/24 @ 13:04 by Radha Ceja CMA) Patient Tobacco Use Status: Former Tobacco user Use of substances other than those prescribed or required for medical reasons: Yes Substance Use Type: Marijuana Advance Directives: No Advance Directives Information Provided: Yes Poor oral hygiene: No Meds Allergies Allergy/AdvReac Type Severity Reaction Status Date / Time Penicillins Allergy Intermediate SWELLING Verified 12/14/24 13:04 Home Medications ?Medication ?Instructions ?Recorded ?Confirmed ?Last Taken ?Type fluticasone propionate 50 2 spray intranasal DAILY 04/22/21 09/17/22 Unknown History mcg/actuation nasal spray,suspension [id number]-er-ecvkv 300 mcg-K 60 1 tab PO DAILY 04/22/21 09/17/22 Unknown History mcg-lycop 600 mcg-lutein 300 mcg tablet (Centrum Silver Ultra Men's) omega-3 fatty acids 1,000 mg 1,000 mg PO DAILY 04/22/21 09/17/22 Unknown History capsule (Fish Oil Concentrate) timolol maleate 0.5 % eye drops 1 drp ophthalmic (eye) BID 04/22/21 09/17/22 Unknown History Exam Height,Weight and Vital Signs: Height 5 ft 7 in Weight 65.317 kg Assessment and Plan Final Anesthetic Review Family History of Problems with Anesthesia: No History of Problems with Anesthesia: No Documented by User: Anais Russell MD 02/17/25 10:31 [facility] Past Medical History Medical History (Updated 12/14/24 @ 13:28 by Olivia Kong NP) BPH (benign prostatic hyperplasia) Elevated cholesterol Hepatitis C MINGO (obstructive sleep apnea) COPD (chronic obstructive pulmonary disease) Pneumonitis Pulmonary nodule Surgical History Surgical History (Updated 02/17/25 @ 10:08 by Katie Putnam RN) History of surgery History of prostate surgery Hx of bilateral inguinal hernia repair Hx of right inguinal hernia repair History of esophagogastroduodenoscopy (EGD) H/O colonoscopy Hx of circumcision History of lung biopsy Social History Social History (Updated 12/14/24 @ 13:04 by Radha Ceja CMA) Patient Tobacco Use Status: Former Tobacco user Use of substances other than those prescribed or required for medical reasons: Yes Substance Use Type: Marijuana Advance Directives: No Advance Directives Information Provided: Yes Poor oral hygiene: No Meds Allergies Allergy/AdvReac Type Severity Reaction Status Date / Time Penicillins Allergy Intermediate SWELLING Verified 12/14/24 13:04 Home Medications ?Medication ?Instructions ?Recorded ?Confirmed ?Last Taken ?Type fluticasone propionate 50 2 spray intranasal DAILY 04/22/21 09/17/22 Unknown History mcg/actuation nasal spray,suspension zivrknrz-wp-qexxq 300 mcg-K 60 1 tab PO DAILY 04/22/21 09/17/22 Unknown History mcg-lycop 600 mcg-lutein 300 mcg tablet (Centrum Silver Ultra Men's) omega-3 fatty acids 1,000 mg 1,000 mg PO DAILY 04/22/21 09/17/22 Unknown History capsule (Fish Oil Concentrate) timolol maleate 0.5 % eye drops 1 drp ophthalmic (eye) BID 04/22/21 09/17/22 Unknown History Exam Airway Mallampati Class: II TM Dist: >3cm Neck ROM: Full Heart: rrr Lungs: cta Assessment and Plan Assessment Anesthesia Assessment: Anesthesia Plan Discussed and Chart Reviewed Final Anesthetic Review NPO: Yes ASA Class: II Final Preanesthetic Review: No Changes in Pt Med Stat, Meds/Allgs Chart Reviewed and Consent Obtained/Reviewed Patient Risk: Low Procedure Risk: Low Anesthetic Plan Anesthetic Plan: MAC: Disposition: Standard PACU
--- NOTE | 2025-02-17 10:07 | MHC.SHP ---
Pre-Procedural Eval Section A - 24 Hr Update-Section A only Date of Service: 02/17/25 The patient is an INPATIENT: No The patient has been examined within 24 hours of the surgical procedure. The History & Physical has been completed within 30 days and I have reviewed it.: No Section B - Complete if H&P > 30 days Chief Complaint: Surveillance for colon polyps Relevant Family History (Specify if Yes): No Relevant Social History: None Present Medications: see Short Stay Collaborative assessment Medical History: Significant History (BPH (benign prostatic hyperplasia) Elevated cholesterol Hepatitis C) History of Previous Operations: Relevant previous surgery/procedure and date(s) (H/O colonoscopy History of esophagogastroduodenoscopy (EGD) History of lung biopsy History of prostate surgery Hx of bilateral inguinal hernia repair Hx of circumcision Hx of right inguinal hernia repair) Allergies: Allergies Allergy/AdvReac Type Severity Reaction Status Date / Time Penicillins Allergy Intermediate SWELLING Verified 12/14/24 13:04 Review of Systems Sugical H&P ROS: Negative: Constitution, Cardiovascular, Respiratory and Gastrointestinal Exam Surgical H&P Exam: Normal: Heart, Normal: Lungs, Normal: Extremities and Normal: Abdomen Plan Diagnosis/Plan: Change (Proceed with colonoscopy) I have reviewed the history and physical and performed a pertinent physical examination on my patient. No changes have occurred unless specified. Time Spent With Patient Time: Total time managing care of this patient today ____ minutes.
[2025-02-17 10:09] VITALS: BMI 21.3
[2025-02-17 10:17] VITALS: BP 130/65; PULSE 67; RESP 16; TEMP 36.1; O2SAT 99
[2025-02-17 10:24] VITALS: PULSE 58
[2025-02-17] MEDS: Lactated Ringers 1,000 ML 100 ML IVCONT (10:31)
[2025-02-17 11:36] VITALS: BP 99/63; PULSE 62; RESP 16; TEMP 36.1; O2SAT 98
--- NOTE | 2025-02-17 11:38 | P.OPN-COLO_ITS ---
Colonoscopy Operative Note Operative Note Date of Service: 02/17/25 Narrative: COLONOSCOPY TILL CECUM WITH BIOPSIES AND SNARE POLYPECTOMY Pre-op diagnosis: Surveillance of colon polyps. Post-op diagnosis:? Colon polyps, Diverticulosis, hemorrhoids Endoscopist:? Cheyanne Riley MD Anesthesia:?MAC Consent: Indications for the procedure and potential complications of bleeding, perforation, reaction to medications and missed diagnosis were discussed with the patient and informed consent was obtained. Instrument: Olympus PCF H 190 L variable stiffness pediatric colonoscope Monitoring: Vital signs and clinical assessment, intermittent blood pressure monitoring, continuous EKG monitoring, Pulse oximetry and Carbon Dioxide monitoring were done throughout the procedure. Please see anesthesia flowsheet. Colon withdrawl time was 20 minutes. Procedure: The patient was placed in the left lateral decubitis position and pre-procedure medications were administered. After a digital rectal examination of the ano-rectum, the video colonoscope was inserted into the rectum and advanced through the colon to the cecum. The colonoscope was slowly withdrawn in a retrograde panoramic fashion and the colon mucosa was carefully examined including a retroflexed view of the rectum. Findings and interventions are described below. Procedure Difficulty: without difficulty - there was luminal narrowing in the left colon due to severe diverticulosis which was navigated with some difficulty Findings: Terminal Ileum: Not evaluated Cecum: A 2-3 mm sessile polyp - adjacent to the appendicular orifice - removed with a cold biopsy. A 3-4 mm sessile polyp - removed with a cold snare Ascending Colon: Normal Transverse Colon: Normal Descending Colon: Moderate diverticulosis Sigmoid Colon: A 2-3 mm sessile polyp - removed with a cold biopsy. Severe diverticulosis with luminal narrowing Rectum: Normal Ano-rectum: Small internal hemorrhoids Colon preparation: Excellent after some irrigation. [place] Bowel Preparation Scale Right colon; 3 Transverse colon: 3 Left colon; 3 (0 = Unprepared colon segment with mucosa not seen due to solid stool that cannot be cleared. 1 = Portion of mucosa of the colon segment seen, but other areas of the colon segment not well seen due to staining, residual stool and/or opaque liquid. 2 = Minor amount of residual staining, small fragments of stool and/or opaque liquid, but mucosa of colon segment seen well. 3 = Entire mucosa of colon segment seen well with no residual staining, small fragments of stool or opaque liquid) Impression and Post Procedure Diagnosis: Colonoscopy Findings: Three small polyps were removed Moderate diverticulosis seen in the left colon small hemorrhoids on retroflexed exam. Plan: I will send a letter with biopsy results Repeat Colonoscopy in 5 years if polyps are adenomatous and discontinue colon cancer screening if polyps are hyperplastic. Above findings were reviewed with the patient and relevant handouts were given and the discharge area. BIOPSIES SHOWED: A. Cecum, polypectomies: Colonic mucosa with mild surface hyperplastic changes and small lymphoid aggregate. B. Colon, sigmoid, polypectomy: Tubular adenoma; negative for high-grade dysplasia or carcinoma. Letter sent to the patient biopsy results. Patient was placed on the colonoscopy recall list for repeat colonoscopy in 5 years (if he remains in stable health)
[2025-02-17 11:50] VITALS: BP 113/75; PULSE 68; RESP 16; TEMP 36.1; O2SAT 98
== END 2025-02-17 12:35 | disposition home or self-care (01) ==
PROVIDERS: PCP Internal Medicine; Visit Provider Internal Medicine Gastroenterology
PROC: 0DJD8ZZ Inspection of Lower Intestinal Tract, Via Natural or Artificial Opening Endoscopic (ICD-10-PCS; CPT 45378; principal; 2025-02-17 11:20)
DX: Z12.11 Encounter for screening for malignant neoplasm of colon (principal); Z86.0101 Personal history of adenomatous and serrated colon polyps; D12.5 Benign neoplasm of sigmoid colon; K63.5 Polyp of colon; K57.30 Diverticulosis of large intestine without perforation or abscess without bleeding; K64.8 Other hemorrhoids; J41.0 Simple chronic bronchitis; R91.1 Solitary pulmonary nodule; G47.33 Obstructive sleep apnea (adult) (pediatric); B19.20 Unspecified viral hepatitis C without hepatic coma; E78.00 Pure hypercholesterolemia, unspecified; N40.0 Benign prostatic hyperplasia without lower urinary tract symptoms; Z79.51 Long term (current) use of inhaled steroids; Z79.899 Other long term (current) drug therapy; Z88.0 Allergy status to penicillin; Z98.890 Other specified postprocedural states; Z87.891 Personal history of nicotine dependence
CPT/HCPCS: 45385; 45380; 88305; J2704

== ENCOUNTER → 2025-02-17 09:38 | Outpatient (BNV) | payer MEDICARE, SELFPAY | PROVIDERS: PCP Internal Medicine; Visit Provider Internal Medicine Gastroenterology | DX: Z12.11 Encounter for screening for malignant neoplasm of colon (principal); K63.5 Polyp of colon; K57.90 Diverticulosis of intestine, part unspecified, without perforation or abscess without bleeding; K64.8 Other hemorrhoids; Z86.0109 Personal history of other colon polyps | CPT/HCPCS: 45380 ==